=== PATIENT | male | born 1970 | race Two or more races ===

== ENCOUNTER 2021-02-18 16:50 | Inpatient (IN) | payer MEDICAID, OTHER ==
[~2021-02-18] VITALS: Ht 180.3 cm; Wt 131.0 kg
[2021-02-18] MEDS ORDERED: CHOLECALCIFEROL (VITD3) 2,000 UNIT CAP/TAB PO ONE (17:15)
[2021-02-18] MEDS ORDERED: ASCORBIC ACID 500 MG TAB PO ONE (17:15)
[2021-02-18] MEDS ORDERED: methylPREDNISolone SOD SUCC 125 MG/2 ML VL IV ONE (17:15)
[2021-02-18] MEDS ORDERED: ZINC SULFATE 220mg CAP or TAB PO ONE (17:15)
[2021-02-18] MEDS ORDERED: AZITHROMYCIN 500MG/ 250ML 250 ML IV ONE (17:15)
[2021-02-18 18:13] LABS: Basophils # (auto) 0 10 ^3/uL (0-0.2); Basophils % (auto) 0.1 % (0.0-2.0); Eosinophils # (auto) 0 10 ^3/uL (0-0.8); Hematocrit 48.9 % (41.0-53.0); Lymphocytes # (auto) 0.4 10 ^3/uL (0.4-5.4); Lymphocytes % (auto) 6.3 % (10.0-50.0); Mean Corpuscular Hemoglobin 31.3 pg (28.0-32.0); Mean Corpuscular Hgb Conc. 34.8 g/dL (32.0-36.0); Mean Corpuscular Volume 89.7 fL (80.0-100.0); Monocytes # (auto) 0.3 10 ^3/uL (0-1.3); Monocytes % (auto) 5.1 % (0.0-12.0); Neutrophils # (auto) 5.6 10 ^3/uL (1.6-8.6); Neutrophils % (auto) 88.5 % (37.0-80.0); Nucleated Red Blood Cells % 0.2 %; Red Blood Cells 5.45 10^6/uL (4.5-5.90); Red Cell Distribution Width 12.7 % (11.8-14.3); White Blood Cell 6.4 10^3/uL (4.4-10.8)
[2021-02-18 18:26] LABS: Albumin 2.9 g/dL (3.4-5.0); Calcium 8.4 mg/dL (8.5-10.1); Magnesium 2.8 mg/dL (1.6-2.6); Potassium 3.4 mmol/L (3.5-5.1)
[2021-02-18 18:28] LABS: BUN/Creatinine Ratio 20.7; Bilirubin, Total 1.3 mg/dL (0.2-1.0); Total Protein 7.5 g/dL (6.4-8.2)
[2021-02-18] MEDS ORDERED: ALBUTEROL SULF 2.5 MG/0.5ML(0.5%) NEB SOLN HHN ONE (19:15)
[2021-02-18] MEDS ORDERED: REMDESIVIR PER PHARMACY 0 ML IV SCH (19:15)
[2021-02-18] MEDS ORDERED: SODIUM CHLORIDE 0.9% 1,000 ML IV ONE (19:15)
[2021-02-18] MEDS ORDERED: IPRATROPIUM BROM 0.5 MG/2.5ML INH SOL HHN ONE (19:15)
[2021-02-18] MEDS ORDERED: IOHEXOL 350 MG/ML 100ML IJ ONE (19:59)
[2021-02-18] MEDS ORDERED: ENOXAPARIN SOD 100 MG/1 ML SYRINGE SC ONE (20:00)
[2021-02-18] MEDS ORDERED: REMDESIVIR 200 MG in NS 210ml LOADING DOSE ADULT IV ONE (21:00)
[2021-02-18] MEDS ORDERED: ONDANSETRON HCL 4 MG/2 ML VIAL IV PRN (21:15)
[2021-02-18] MEDS ORDERED: DOCUSATE SOD 100 MG CAP PO PRN (21:15)
[2021-02-18] MEDS ORDERED: ACETAMINOPHEN 500 MG TAB PO PRN (21:15)
[2021-02-18 21:24] LABS: Lactic Acid w/Reflex 3.2 mmol/L (0.4-2.0)
[2021-02-18] MEDS: FAMOTIDINE (10MG/ML) 2ML VL IV SCH (22:07)
[2021-02-18] MEDS: SODIUM CHLOR 0.9% PF (SALINE LOCK) 10ML VIAL/SYR IV SCH (22:08)
[2021-02-18 23:50] VITALS: BP 95/65
[2021-02-19] MEDS ORDERED: NITROGLYCERIN 0.4 MG SL TAB SL PRN (00:15)
[2021-02-19] MEDS ORDERED: MORPHINE SULFATE INJECTION 2 MG/ML SYRG IV PRN (00:15)
[2021-02-19] MEDS ORDERED: POTASSIUM CHL 20MEQ/100ML 100 ML IV ONE (00:45)
[2021-02-19] MEDS: SODIUM CHLORIDE 0.9% 1,000 ML IV SCH ×2 (00:56→17:25)
[2021-02-19 01:28] VITALS: BP 112/71
[2021-02-19 02:11] VITALS: BP 112/71
[2021-02-19 05:00] VITALS: BP 124/73
[2021-02-19] MEDS: SODIUM CHLOR 0.9% PF (SALINE LOCK) 10ML VIAL/SYR IV SCH ×3 (05:30→21:18)
[2021-02-19 09:00] VITALS: BP 108/72
[2021-02-19] MEDS: ZINC SULFATE 220mg CAP or TAB PO SCH (10:40)
[2021-02-19] MEDS: AZITHROMYCIN 500MG/ 250ML 250 ML IV SCH (10:40)
[2021-02-19] MEDS: FAMOTIDINE (10MG/ML) 2ML VL IV SCH ×2 (10:40→21:18)
[2021-02-19] MEDS: DexAMETHasone SOD PHOS 10MG/1ML VIAL INJ IV SCH (10:40)
[2021-02-19] MEDS: MULTIPLE VITAMIN TAB PO SCH (10:41)
[2021-02-19] MEDS: CHOLECALCIFEROL (VITD3) 2,000 UNIT CAP/TAB PO SCH (10:41)
[2021-02-19] MEDS: ASCORBIC ACID 1,000 MG TAB PO SCH (10:41)
[2021-02-19] MEDS: ENOXAPARIN SOD 40 MG/0.4 ML SYRINGE SC SCH ×2 (10:41→21:18)
[2021-02-19 11:59] LABS: Basophils # (auto) 0 10 ^3/uL (0-0.2); Basophils % (auto) 0.1 % (0.0-2.0); Eosinophils # (auto) 0 10 ^3/uL (0-0.8); Hematocrit 45.7 % (41.0-53.0); Hemoglobin 15.9 g/dL (13.5-17.5); Lymphocytes # (auto) 0.4 10 ^3/uL (0.4-5.4); Lymphocytes % (auto) 4.9 % (10.0-50.0); Mean Corpuscular Hemoglobin 31.7 pg (28.0-32.0); Mean Corpuscular Hgb Conc. 34.7 g/dL (32.0-36.0); Mean Corpuscular Volume 91.3 fL (80.0-100.0); Monocytes # (auto) 0.3 10 ^3/uL (0-1.3); Monocytes % (auto) 3.8 % (0.0-12.0); Neutrophils # (auto) 7.4 10 ^3/uL (1.6-8.6); Neutrophils % (auto) 91.2 % (37.0-80.0); Nucleated Red Blood Cells % 0.4 %; Red Cell Distribution Width 13.2 % (11.8-14.3); White Blood Cell 8.1 10^3/uL (4.4-10.8)
[2021-02-19 12:22] LABS: Albumin 2.4 g/dL (3.4-5.0); Calcium 7.6 mg/dL (8.5-10.1); Potassium 3.9 mmol/L (3.5-5.1)
[2021-02-19 12:25] LABS: BUN/Creatinine Ratio 23.3; Bilirubin, Total 0.8 mg/dL (0.2-1.0); Total Protein 6.1 g/dL (6.4-8.2)
[2021-02-19 13:00] VITALS: BP 94/63
[2021-02-19] MEDS: REMDESIVIR 100mg 100 MG in SODIUM CHL 0.9% 230 ML IV SCH (15:46)
[2021-02-19 17:00] VITALS: BP 96/63
[2021-02-19] MEDS: HYDROcodone-ACET 5/325MG TAB PO PRN (21:18)
[2021-02-20 05:00] VITALS: BP 92/64
[2021-02-20] MEDS: SODIUM CHLORIDE 0.9% 1,000 ML IV SCH (05:11)
[2021-02-20] MEDS: SODIUM CHLOR 0.9% PF (SALINE LOCK) 10ML VIAL/SYR IV SCH ×3 (05:35→22:00)
[2021-02-20 06:35] LABS: Basophils # (auto) 0 10 ^3/uL (0-0.2); Basophils % (auto) 0.1 % (0.0-2.0); Eosinophils # (auto) 0 10 ^3/uL (0-0.8); Hematocrit 44.4 % (41.0-53.0); Hemoglobin 15.3 g/dL (13.5-17.5); Lymphocytes # (auto) 0.6 10 ^3/uL (0.4-5.4); Lymphocytes % (auto) 6.4 % (10.0-50.0); Mean Corpuscular Hemoglobin 31.3 pg (28.0-32.0); Mean Corpuscular Hgb Conc. 34.5 g/dL (32.0-36.0); Mean Corpuscular Volume 90.9 fL (80.0-100.0); Monocytes # (auto) 0.4 10 ^3/uL (0-1.3); Monocytes % (auto) 4.2 % (0.0-12.0); Neutrophils # (auto) 8.3 10 ^3/uL (1.6-8.6); Neutrophils % (auto) 89.3 % (37.0-80.0); Red Blood Cells 4.89 10^6/uL (4.5-5.90); Red Cell Distribution Width 13.4 % (11.8-14.3); White Blood Cell 9.3 10^3/uL (4.4-10.8)
[2021-02-20 07:02] LABS: Calcium 7.5 mg/dL (8.5-10.1); Potassium 4.2 mmol/L (3.5-5.1)
[2021-02-20 07:05] LABS: BUN/Creatinine Ratio 27.2
[2021-02-20] MEDS: ALBUTEROL SULF HFA 90MCG INH 200DOSE IN PRN (07:45)
[2021-02-20] MEDS: BUDESONIDE (INHALATION) 180 MCG IH IN SCH ×2 (07:45→22:30)
[2021-02-20 09:00] VITALS: BP 102/61
[2021-02-20] MEDS: DexAMETHasone SOD PHOS 10MG/1ML VIAL INJ IV SCH (09:41)
[2021-02-20] MEDS: FAMOTIDINE (10MG/ML) 2ML VL IV SCH ×2 (09:42→22:00)
[2021-02-20] MEDS: CHOLECALCIFEROL (VITD3) 2,000 UNIT CAP/TAB PO SCH (09:45)
[2021-02-20] MEDS: ZINC SULFATE 220mg CAP or TAB PO SCH (09:45)
[2021-02-20] MEDS: MULTIPLE VITAMIN TAB PO SCH (09:45)
[2021-02-20] MEDS: ASCORBIC ACID 1,000 MG TAB PO SCH (09:45)
[2021-02-20] MEDS: AZITHROMYCIN 500MG/ 250ML 250 ML IV SCH (09:45)
[2021-02-20] MEDS: ENOXAPARIN SOD 40 MG/0.4 ML SYRINGE SC SCH ×2 (09:46→22:00)
[2021-02-20] MEDS: HYDROcodone-ACET 5/325MG TAB PO PRN (09:47)
[2021-02-20] MEDS ORDERED: THROAT LOZENGES(CEPASTAT) MT PRN (10:30)
[2021-02-20] MEDS ORDERED: guaiFENesin-DM 100/10mg/5ml SYR PO PRN (10:30)
[2021-02-20 13:00] VITALS: BP 97/67
[2021-02-20] MEDS: REMDESIVIR 100mg 100 MG in SODIUM CHL 0.9% 230 ML IV SCH (15:22)
[2021-02-20 17:00] VITALS: BP 98/76
[2021-02-20 22:00] VITALS: BP 106/67
[2021-02-21] MEDS: SODIUM CHLORIDE 0.9% 1,000 ML IV SCH ×2 (02:45→09:39)
[2021-02-21 05:00] VITALS: BP 93/58
[2021-02-21 08:00] LABS: Basophils # (auto) 0 10 ^3/uL (0-0.2); Basophils % (auto) 0.2 % (0.0-2.0); Eosinophils # (auto) 0 10 ^3/uL (0-0.8); Hematocrit 43.7 % (41.0-53.0); Hemoglobin 15.1 g/dL (13.5-17.5); Lymphocytes # (auto) 0.5 10 ^3/uL (0.4-5.4); Mean Corpuscular Hemoglobin 31.2 pg (28.0-32.0); Mean Corpuscular Hgb Conc. 34.6 g/dL (32.0-36.0); Mean Corpuscular Volume 90.2 fL (80.0-100.0); Monocytes # (auto) 0.6 10 ^3/uL (0-1.3); Monocytes % (auto) 6.3 % (0.0-12.0); Neutrophils # (auto) 7.7 10 ^3/uL (1.6-8.6); Neutrophils % (auto) 87.5 % (37.0-80.0); Nucleated Red Blood Cells % 0.1 %; Red Blood Cells 4.85 10^6/uL (4.5-5.90); Red Cell Distribution Width 13.4 % (11.8-14.3); White Blood Cell 8.8 10^3/uL (4.4-10.8)
[2021-02-21 08:20] LABS: Calcium 7.8 mg/dL (8.5-10.1); Potassium 4.1 mmol/L (3.5-5.1)
[2021-02-21 08:26] LABS: BUN/Creatinine Ratio 34.8
[2021-02-21 08:30] VITALS: BP 104/63
[2021-02-21] MEDS: FAMOTIDINE (10MG/ML) 2ML VL IV SCH ×2 (09:39→22:00)
[2021-02-21] MEDS: DexAMETHasone SOD PHOS 10MG/1ML VIAL INJ IV SCH (09:39)
[2021-02-21] MEDS: ASCORBIC ACID 1,000 MG TAB PO SCH (09:40)
[2021-02-21] MEDS: ZINC SULFATE 220mg CAP or TAB PO SCH (09:40)
[2021-02-21] MEDS: CHOLECALCIFEROL (VITD3) 2,000 UNIT CAP/TAB PO SCH (09:40)
[2021-02-21] MEDS: ENOXAPARIN SOD 40 MG/0.4 ML SYRINGE SC SCH ×2 (09:40→22:00)
[2021-02-21] MEDS: AZITHROMYCIN 500MG/ 250ML 250 ML IV SCH (09:40)
[2021-02-21] MEDS: MULTIPLE VITAMIN TAB PO SCH (09:40)
[2021-02-21 12:30] VITALS: BP 107/68
[2021-02-21] MEDS: REMDESIVIR 100mg 100 MG in SODIUM CHL 0.9% 230 ML IV SCH (15:38)
[2021-02-21] MEDS: BUDESONIDE (INHALATION) 180 MCG IH IN SCH ×2 (15:45→22:42)
[2021-02-21] MEDS: ALBUTEROL SULF HFA 90MCG INH 200DOSE IN PRN ×2 (15:45→23:40)
[2021-02-21 17:00] VITALS: BP 124/70
[2021-02-21 22:00] VITALS: BP 100/50
[2021-02-22 05:00] VITALS: BP 120/71
[2021-02-22 07:34] LABS: Basophils # (auto) 0.1 10 ^3/uL (0-0.2); Basophils % (auto) 0.7 % (0.0-2.0); Eosinophils # (auto) 0 10 ^3/uL (0-0.8); Hemoglobin 15.2 g/dL (13.5-17.5); Lymphocytes # (auto) 0.5 10 ^3/uL (0.4-5.4); Lymphocytes % (auto) 6.4 % (10.0-50.0); Mean Corpuscular Hemoglobin 31.4 pg (28.0-32.0); Mean Corpuscular Hgb Conc. 34.7 g/dL (32.0-36.0); Mean Corpuscular Volume 90.7 fL (80.0-100.0); Monocytes # (auto) 0.6 10 ^3/uL (0-1.3); Monocytes % (auto) 8.9 % (0.0-12.0); Neutrophils # (auto) 6.1 10 ^3/uL (1.6-8.6); Nucleated Red Blood Cells % 0.1 %; Red Blood Cells 4.85 10^6/uL (4.5-5.90); Red Cell Distribution Width 13.3 % (11.8-14.3); White Blood Cell 7.3 10^3/uL (4.4-10.8)
[2021-02-22 08:00] LABS: Albumin 2.1 g/dL (3.4-5.0); Calcium 7.6 mg/dL (8.5-10.1); Potassium 4.1 mmol/L (3.5-5.1)
[2021-02-22 08:05] LABS: BUN/Creatinine Ratio 28.6; Bilirubin, Total 0.9 mg/dL (0.2-1.0); Total Protein 5.2 g/dL (6.4-8.2)
[2021-02-22] MEDS: ALBUTEROL SULF HFA 90MCG INH 200DOSE IN PRN ×2 (08:47→21:45)
[2021-02-22] MEDS: BUDESONIDE (INHALATION) 180 MCG IH IN SCH ×2 (08:47→21:45)
[2021-02-22 09:00] VITALS: BP 125/65
[2021-02-22] MEDS: FAMOTIDINE (10MG/ML) 2ML VL IV SCH ×2 (09:38→21:58)
[2021-02-22] MEDS: ENOXAPARIN SOD 40 MG/0.4 ML SYRINGE SC SCH ×2 (09:38→21:58)
[2021-02-22] MEDS: AZITHROMYCIN 500MG/ 250ML 250 ML IV SCH (09:38)
[2021-02-22] MEDS: DexAMETHasone SOD PHOS 10MG/1ML VIAL INJ IV SCH (09:38)
[2021-02-22] MEDS: ZINC SULFATE 220mg CAP or TAB PO SCH (09:39)
[2021-02-22] MEDS: ASCORBIC ACID 1,000 MG TAB PO SCH (09:39)
[2021-02-22] MEDS: MULTIPLE VITAMIN TAB PO SCH (09:39)
[2021-02-22] MEDS: CHOLECALCIFEROL (VITD3) 2,000 UNIT CAP/TAB PO SCH (09:39)
[2021-02-22] MEDS: SODIUM CHLORIDE 0.9% 1,000 ML IV SCH (12:57)
[2021-02-22 13:00] VITALS: BP 114/65
[2021-02-22] MEDS: REMDESIVIR 100mg 100 MG in SODIUM CHL 0.9% 230 ML IV SCH (15:30)
[2021-02-22 17:00] VITALS: BP 117/73
[2021-02-22 22:00] VITALS: BP 114/64
[2021-02-23 05:00] VITALS: BP 120/63
[2021-02-23] MEDS: SODIUM CHLORIDE 0.9% 1,000 ML IV SCH (05:00)
[2021-02-23 07:22] LABS: Basophils # (auto) 0 10 ^3/uL (0-0.2); Basophils % (auto) 0.1 % (0.0-2.0); Eosinophils # (auto) 0 10 ^3/uL (0-0.8); Hematocrit 47.1 % (41.0-53.0); Hemoglobin 16.1 g/dL (13.5-17.5); Lymphocytes # (auto) 0.6 10 ^3/uL (0.4-5.4); Mean Corpuscular Hemoglobin 31.1 pg (28.0-32.0); Mean Corpuscular Hgb Conc. 34.1 g/dL (32.0-36.0); Mean Corpuscular Volume 91.4 fL (80.0-100.0); Monocytes # (auto) 0.4 10 ^3/uL (0-1.3); Monocytes % (auto) 5.6 % (0.0-12.0); Neutrophils # (auto) 6.8 10 ^3/uL (1.6-8.6); Neutrophils % (auto) 86.3 % (37.0-80.0); Nucleated Red Blood Cells % 0.1 %; Red Blood Cells 5.16 10^6/uL (4.5-5.90); White Blood Cell 7.9 10^3/uL (4.4-10.8)
[2021-02-23 07:44] LABS: BUN/Creatinine Ratio 22.1; Calcium 7.9 mg/dL (8.5-10.1); Potassium 4.3 mmol/L (3.5-5.1)
[2021-02-23 09:00] VITALS: BP 138/61
[2021-02-23] MEDS: ALBUTEROL SULF HFA 90MCG INH 200DOSE IN PRN ×2 (09:36→21:51)
[2021-02-23] MEDS: BUDESONIDE (INHALATION) 180 MCG IH IN SCH ×2 (09:36→21:51)
[2021-02-23] MEDS: FAMOTIDINE (10MG/ML) 2ML VL IV SCH ×2 (10:49→21:34)
[2021-02-23] MEDS: ENOXAPARIN SOD 40 MG/0.4 ML SYRINGE SC SCH ×2 (10:49→21:34)
[2021-02-23] MEDS: ZINC SULFATE 220mg CAP or TAB PO SCH (10:49)
[2021-02-23] MEDS: ASCORBIC ACID 1,000 MG TAB PO SCH (10:49)
[2021-02-23] MEDS: MULTIPLE VITAMIN TAB PO SCH (10:49)
[2021-02-23] MEDS: AZITHROMYCIN 500MG/ 250ML 250 ML IV SCH (10:49)
[2021-02-23] MEDS: CHOLECALCIFEROL (VITD3) 2,000 UNIT CAP/TAB PO SCH (10:49)
[2021-02-23] MEDS: DexAMETHasone SOD PHOS 10MG/1ML VIAL INJ IV SCH (12:26)
[2021-02-23 13:14] VITALS: BP 113/61
[2021-02-23 17:00] VITALS: BP 100/69
[2021-02-23 21:33] VITALS: BP 108/69
[2021-02-24 04:41] VITALS: BP 134/86
[2021-02-24 06:46] LABS: Basophils # (auto) 0 10 ^3/uL (0-0.2); Basophils % (auto) 0.1 % (0.0-2.0); Eosinophils # (auto) 0 10 ^3/uL (0-0.8); Eosinophils % (auto) 0.1 % (0.0-7.0); Hematocrit 44.7 % (41.0-53.0); Hemoglobin 15.3 g/dL (13.5-17.5); Lymphocytes # (auto) 0.4 10 ^3/uL (0.4-5.4); Lymphocytes % (auto) 4.6 % (10.0-50.0); Mean Corpuscular Hemoglobin 31.3 pg (28.0-32.0); Mean Corpuscular Hgb Conc. 34.1 g/dL (32.0-36.0); Mean Corpuscular Volume 91.6 fL (80.0-100.0); Monocytes # (auto) 0.4 10 ^3/uL (0-1.3); Monocytes % (auto) 4.4 % (0.0-12.0); Neutrophils # (auto) 7.7 10 ^3/uL (1.6-8.6); Neutrophils % (auto) 90.8 % (37.0-80.0); Red Blood Cells 4.88 10^6/uL (4.5-5.90); Red Cell Distribution Width 13.2 % (11.8-14.3); White Blood Cell 8.5 10^3/uL (4.4-10.8)
[2021-02-24 07:15] LABS: Calcium 8.1 mg/dL (8.5-10.1); Potassium 4.4 mmol/L (3.5-5.1)
[2021-02-24 08:35] VITALS: BP 101/53
[2021-02-24] MEDS: DexAMETHasone SOD PHOS 10MG/1ML VIAL INJ IV SCH (12:36)
[2021-02-24] MEDS: ZINC SULFATE 220mg CAP or TAB PO SCH (12:37)
[2021-02-24] MEDS: MULTIPLE VITAMIN TAB PO SCH (12:37)
[2021-02-24] MEDS: FAMOTIDINE (10MG/ML) 2ML VL IV SCH ×2 (12:37→22:11)
[2021-02-24] MEDS: CHOLECALCIFEROL (VITD3) 2,000 UNIT CAP/TAB PO SCH (12:38)
[2021-02-24] MEDS: ASCORBIC ACID 1,000 MG TAB PO SCH (12:38)
[2021-02-24] MEDS: ENOXAPARIN SOD 40 MG/0.4 ML SYRINGE SC SCH ×2 (12:38→22:11)
[2021-02-24 12:56] VITALS: BP 100/51
[2021-02-24 16:56] VITALS: BP 91/55
[2021-02-24] MEDS: BUDESONIDE (INHALATION) 180 MCG IH IN SCH (19:05)
[2021-02-24 22:00] VITALS: BP 112/59
[2021-02-25] MEDS: ALBUTEROL SULF HFA 90MCG INH 200DOSE IN PRN ×3 (00:15→19:19)
[2021-02-25 05:00] VITALS: BP 115/70
[2021-02-25] MEDS: BUDESONIDE (INHALATION) 180 MCG IH IN SCH ×2 (06:21→19:19)
[2021-02-25 09:10] VITALS: BP 115/67
[2021-02-25] MEDS: DexAMETHasone SOD PHOS 10MG/1ML VIAL INJ IV SCH (09:52)
[2021-02-25] MEDS: ZINC SULFATE 220mg CAP or TAB PO SCH (09:52)
[2021-02-25] MEDS: FAMOTIDINE (10MG/ML) 2ML VL IV SCH ×2 (09:52→21:39)
[2021-02-25] MEDS: ASCORBIC ACID 1,000 MG TAB PO SCH (09:52)
[2021-02-25] MEDS: MULTIPLE VITAMIN TAB PO SCH (09:52)
[2021-02-25] MEDS: ENOXAPARIN SOD 40 MG/0.4 ML SYRINGE SC SCH ×2 (09:52→21:39)
[2021-02-25] MEDS: CHOLECALCIFEROL (VITD3) 2,000 UNIT CAP/TAB PO SCH (09:52)
[2021-02-25 13:05] VITALS: BP 100/66
[2021-02-25 16:08] LABS: Calcium 8.3 mg/dL (8.5-10.1); Potassium 5.1 mmol/L (3.5-5.1)
[2021-02-25 16:09] LABS: Basophils # (auto) 0 10 ^3/uL (0-0.2); Basophils % (auto) 0.1 % (0.0-2.0); Eosinophils # (auto) 0 10 ^3/uL (0-0.8); Hematocrit 45.8 % (41.0-53.0); Hemoglobin 15.9 g/dL (13.5-17.5); Lymphocytes # (auto) 0.3 10 ^3/uL (0.4-5.4); Lymphocytes % (auto) 2.9 % (10.0-50.0); Mean Corpuscular Hemoglobin 31.6 pg (28.0-32.0); Mean Corpuscular Hgb Conc. 34.8 g/dL (32.0-36.0); Mean Corpuscular Volume 90.8 fL (80.0-100.0); Monocytes # (auto) 0.3 10 ^3/uL (0-1.3); Monocytes % (auto) 2.9 % (0.0-12.0); Neutrophils # (auto) 9.1 10 ^3/uL (1.6-8.6); Neutrophils % (auto) 94.1 % (37.0-80.0); Nucleated Red Blood Cells % 0.1 %; Red Blood Cells 5.04 10^6/uL (4.5-5.90); Red Cell Distribution Width 12.9 % (11.8-14.3); White Blood Cell 9.7 10^3/uL (4.4-10.8)
[2021-02-25 16:12] LABS: Albumin 2.1 g/dL (3.4-5.0); BUN/Creatinine Ratio 26.4
[2021-02-25 16:14] LABS: Bilirubin, Total 1.4 mg/dL (0.2-1.0); Total Protein 6.3 g/dL (6.4-8.2)
[2021-02-25 17:28] VITALS: BP 98/71
[2021-02-25] MEDS: D5W/SOD CHLO 0.9% 1,000 ML IV SCH (20:54)
[2021-02-25 22:02] VITALS: BP 100/70
[2021-02-26] VITALS (8 sets, daily range): BP systolic 90–118; BP diastolic 47–85
[2021-02-26] MEDS: BUDESONIDE (INHALATION) 180 MCG IH IN SCH ×2 (06:56→18:58)
[2021-02-26] MEDS: ALBUTEROL SULF HFA 90MCG INH 200DOSE IN PRN ×2 (06:56→18:58)
[2021-02-26] MEDS: CHOLECALCIFEROL (VITD3) 2,000 UNIT CAP/TAB PO SCH (10:00)
[2021-02-26] MEDS: ASCORBIC ACID 1,000 MG TAB PO SCH (10:00)
[2021-02-26] MEDS: ZINC SULFATE 220mg CAP or TAB PO SCH (10:00)
[2021-02-26] MEDS: MULTIPLE VITAMIN TAB PO SCH (10:00)
[2021-02-26] MEDS: DexAMETHasone SOD PHOS 10MG/1ML VIAL INJ IV SCH (10:05)
[2021-02-26] MEDS: ENOXAPARIN SOD 40 MG/0.4 ML SYRINGE SC SCH ×2 (10:05→23:15)
[2021-02-26] MEDS: FAMOTIDINE (10MG/ML) 2ML VL IV SCH ×2 (10:05→23:15)
[2021-02-26] MEDS: Ensure HIGH Protein Vanilla 8oz Bottle PO SCH ×3 (12:00→22:00)
[2021-02-26 12:33] LABS: Basophils # (auto) 0.1 10 ^3/uL (0-0.2); Basophils % (auto) 0.4 % (0.0-2.0); Eosinophils # (auto) 0 10 ^3/uL (0-0.8); Eosinophils % (auto) 0.1 % (0.0-7.0); Hemoglobin 17.5 g/dL (13.5-17.5); Lymphocytes # (auto) 0.2 10 ^3/uL (0.4-5.4); Lymphocytes % (auto) 1.5 % (10.0-50.0); Mean Corpuscular Hemoglobin 31.7 pg (28.0-32.0); Mean Corpuscular Hgb Conc. 34.4 g/dL (32.0-36.0); Mean Corpuscular Volume 92.3 fL (80.0-100.0); Monocytes # (auto) 0.4 10 ^3/uL (0-1.3); Monocytes % (auto) 3.2 % (0.0-12.0); Neutrophils # (auto) 11.3 10 ^3/uL (1.6-8.6); Neutrophils % (auto) 94.8 % (37.0-80.0); Nucleated Red Blood Cells % 0.1 %; Red Blood Cells 5.52 10^6/uL (4.5-5.90); Red Cell Distribution Width 13.3 % (11.8-14.3); White Blood Cell 11.9 10^3/uL (4.4-10.8)
[2021-02-26 12:48] LABS: BUN/Creatinine Ratio 27.7; Calcium 8.1 mg/dL (8.5-10.1); Potassium 4.6 mmol/L (3.5-5.1)
[2021-02-26] MEDS: D5W/SOD CHLO 0.9% 1,000 ML IV SCH (17:48)
[2021-02-27] VITALS (56 sets, daily range): BP systolic 75–185; BP diastolic 52–103
[2021-02-27] MEDS: Ensure HIGH Protein Vanilla 8oz Bottle PO SCH ×4 (06:00→22:00)
[2021-02-27] MEDS: ALBUTEROL SULF HFA 90MCG INH 200DOSE IN PRN (06:44)
[2021-02-27] MEDS: BUDESONIDE (INHALATION) 180 MCG IH IN SCH (06:44)
[2021-02-27] MEDS ORDERED: LORazepam 2MG/ML-1ML VIAL IV PRN (07:45)
[2021-02-27] MEDS: ENOXAPARIN SOD 40 MG/0.4 ML SYRINGE SC SCH ×2 (09:44→22:31)
[2021-02-27] MEDS: DexAMETHasone SOD PHOS 10MG/1ML VIAL INJ IV SCH (09:44)
[2021-02-27] MEDS: FAMOTIDINE (10MG/ML) 2ML VL IV SCH ×2 (09:44→22:30)
[2021-02-27] MEDS: MULTIPLE VITAMIN TAB PO SCH (10:00)
[2021-02-27] MEDS: ZINC SULFATE 220mg CAP or TAB PO SCH (10:00)
[2021-02-27] MEDS: ASCORBIC ACID 1,000 MG TAB PO SCH (10:00)
[2021-02-27] MEDS: CHOLECALCIFEROL (VITD3) 2,000 UNIT CAP/TAB PO SCH (10:00)
[2021-02-27] MEDS ORDERED: PROPOFOL 100 ML IV ONE (11:12)
[2021-02-27] MEDS ORDERED: fentaNYL Drip 2500mCg/250mlNS 250 ML IV ONE (11:12)
[2021-02-27] MEDS ORDERED: ETOMIDATE (2MG/ML) 20ML VIAL IV ONE ×2 (11:13→11:15)
[2021-02-27] MEDS ORDERED: SUCCINYLCHOLINE CHLORIDE 20 MG/ML 10ML VIAL IV ONE (11:13)
[2021-02-27] MEDS ORDERED: ROCURONIUM 10MG/ML 10ML VIAL IV ONE ×2 (11:13→11:15)
[2021-02-27] MEDS ORDERED: MIDAZOLAM DRIP 50 mg/50mL 50 ML IV ONE (11:13)
[2021-02-27] MEDS ORDERED: NOREPINEPHRINE 8 MG/250ML KIT 250 ML IV ONE (11:15)
[2021-02-27] MEDS ORDERED: MIDAZOLAM HCL 2MG/2ML 2ml VIAL (1mg/ml) ONE (11:27)
[2021-02-27] MEDS ORDERED: cefTRIAXone 1GM/50ML D5W 50 ML IV ONE (12:15)
[2021-02-27] MEDS: D5W/SOD CHLO 0.9% 1,000 ML IV SCH (12:30)
[2021-02-27] MEDS: MIDAZOLAM DRIP 50 mg/50mL 50 ML IV SCH (13:00)
[2021-02-27] MEDS: PROPOFOL 100 ML IV SCH ×2 (13:00→21:13)
[2021-02-27] MEDS: fentaNYL Drip 2500mCg/250mlNS 250 ML IV SCH (13:30)
[2021-02-27] MEDS: BUDESONIDE (INHALATION) 0.5 MG/2 ML NEB NEB SCH (18:43)
[2021-02-27] MEDS: ALBUTEROL SULF 2.5 MG/0.5ML(0.5%) NEB SOLN NEB PRN (18:44)
[2021-02-27] MEDS: NOREPINEPHRINE 8 MG/250ML KIT 250 ML IV SCH (19:07)
[2021-02-28] VITALS (86 sets, daily range): BP systolic 44–198; BP diastolic 31–97
[2021-02-28] MEDS: fentaNYL Drip 2500mCg/250mlNS 250 ML IV SCH ×2 (00:01→13:30)
[2021-02-28] MEDS: NOREPINEPHRINE 8 MG/250ML KIT 250 ML IV SCH (00:04)
[2021-02-28] MEDS: PROPOFOL 100 ML IV SCH ×4 (01:40→22:59)
[2021-02-28 04:14] LABS: Hematocrit 47.9 % (41.0-53.0); Hemoglobin 15.6 g/dL (13.5-17.5); Mean Corpuscular Hgb Conc. 32.6 g/dL (32.0-36.0); Red Blood Cells 5.05 10^6/uL (4.5-5.90); Red Cell Distribution Width 13.4 % (11.8-14.3); White Blood Cell 28.2 10^3/uL (4.4-10.8)
[2021-02-28 04:26] LABS: Basophils % (manual) 0 (0.0-2.0); Blast Cells 0; Eosinophils % (manual) 0 (0-7); Metamyelocytes % 0; Myelocytes % 0; Promyelocytes % 0; Reactive Lymphocytes 0
[2021-02-28] MEDS: MIDAZOLAM DRIP 50 mg/50mL 50 ML IV SCH ×3 (04:27→16:56)
[2021-02-28 04:34] LABS: BUN/Creatinine Ratio 28.6; Calcium 7.9 mg/dL (8.5-10.1); Potassium 5.2 mmol/L (3.5-5.1)
[2021-02-28 04:38] LABS: Bilirubin, Total 1.5 mg/dL (0.2-1.0); Total Protein 6.5 g/dL (6.4-8.2)
[2021-02-28 05:38] LABS: Band Neutrophils % (manual) 3; Lymphocytes % (manual) 2 (10.0-50.0); Monocytes % (manual) 3 (0-12)
[2021-02-28] MEDS: Ensure HIGH Protein Vanilla 8oz Bottle PO SCH ×2 (06:00→12:00)
[2021-02-28] MEDS: BUDESONIDE (INHALATION) 0.5 MG/2 ML NEB NEB SCH ×2 (06:10→22:20)
[2021-02-28] MEDS: ALBUTEROL SULF 2.5 MG/0.5ML(0.5%) NEB SOLN NEB PRN ×2 (06:10→22:20)
[2021-02-28] MEDS: D5W/SOD CHLO 0.9% 1,000 ML IV SCH ×2 (08:30→12:09)
[2021-02-28] MEDS: ROCURONIUM BROMIDE 1,000 MG in D5W 5% 150 ML IV SCH (08:40)
[2021-02-28] MEDS ORDERED: LABETALOL HCL 5 MG/ML 4ML SYRINGE IV PRN (09:15)
[2021-02-28] MEDS ORDERED: LABETALOL HCL 5 MG/ML 4ML SYRINGE IV ONE (09:15)
[2021-02-28] MEDS: cefTRIAXone 1GM/50ML D5W 50 ML IV SCH (09:24)
[2021-02-28] MEDS: ASCORBIC ACID 1,000 MG TAB PO SCH (10:00)
[2021-02-28] MEDS: MULTIPLE VITAMIN TAB PO SCH (10:00)
[2021-02-28] MEDS: ZINC SULFATE 220mg CAP or TAB PO SCH (10:00)
[2021-02-28] MEDS: DexAMETHasone SOD PHOS 10MG/1ML VIAL INJ IV SCH (10:00)
[2021-02-28] MEDS: FAMOTIDINE (10MG/ML) 2ML VL IV SCH ×2 (10:00→22:57)
[2021-02-28] MEDS: CHOLECALCIFEROL (VITD3) 2,000 UNIT CAP/TAB PO SCH (10:00)
[2021-02-28] MEDS: ENOXAPARIN SOD 40 MG/0.4 ML SYRINGE SC SCH ×2 (10:00→22:57)
[2021-02-28] MEDS ORDERED: FUROSEMIDE 20 MG/2 ML VIAL IV ONE (13:30)
[2021-02-28] MEDS ORDERED: FUROSEMIDE 100 MG/10ML VIAL IV ONE (15:45)
[2021-02-28] MEDS ORDERED: SODIUM BICARBONATE 8.4 % INJ 50ML VIAL IV ONE (15:45)
[2021-02-28] MEDS: EPINEPHrine HCL 250 ML IV SCH (16:45)
[2021-02-28] MEDS: VASOPRESSIN 50 UNITS in D5W 5% 247.5 ML IV SCH (16:45)
[2021-02-28] MEDS: SODIUM BICARBONATE 50ML VIAL 150 ML in D5W 5% 1,000 ML IV SCH (16:47)
[2021-02-28] MEDS: PHENYLEPHRINE IV 250 ML IV SCH ×2 (17:10→22:58)
[2021-03-01] VITALS (101 sets, daily range): BP systolic 55–145; BP diastolic 32–76
[2021-03-01] MEDS: MIDAZOLAM DRIP 50 mg/50mL 50 ML IV SCH ×3 (00:25→12:53)
[2021-03-01] MEDS: SODIUM BICARBONATE 50ML VIAL 150 ML in D5W 5% 1,000 ML IV SCH ×2 (04:35→14:48)
[2021-03-01] MEDS: ROCURONIUM BROMIDE 1,000 MG in D5W 5% 150 ML IV SCH (04:36)
[2021-03-01] MEDS: PHENYLEPHRINE IV 250 ML IV SCH ×2 (04:36→16:36)
[2021-03-01] MEDS: PROPOFOL 100 ML IV SCH ×2 (04:37→09:47)
[2021-03-01] MEDS: NOREPINEPHRINE 8 MG/250ML KIT 250 ML IV SCH ×3 (04:37→16:36)
[2021-03-01 04:38] LABS: Hematocrit 41.8 % (41.0-53.0); Hemoglobin 14.1 g/dL (13.5-17.5); Mean Corpuscular Hemoglobin 31.7 pg (28.0-32.0); Mean Corpuscular Hgb Conc. 33.8 g/dL (32.0-36.0); Mean Corpuscular Volume 93.6 fL (80.0-100.0); Red Blood Cells 4.46 10^6/uL (4.5-5.90); Red Cell Distribution Width 13.1 % (11.8-14.3); White Blood Cell 25.5 10^3/uL (4.4-10.8)
[2021-03-01 04:40] LABS: Basophils % (manual) 0 (0.0-2.0); Blast Cells 0; Eosinophils % (manual) 0 (0-7); Metamyelocytes % 0; Myelocytes % 0; Promyelocytes % 0; Reactive Lymphocytes 0
[2021-03-01 04:50] LABS: BUN/Creatinine Ratio 14.9; Calcium 6.5 mg/dL (8.5-10.1)
[2021-03-01 06:03] LABS: Band Neutrophils % (manual) 3; Lymphocytes % (manual) 2 (10.0-50.0); Monocytes % (manual) 3 (0-12)
[2021-03-01] MEDS: ALBUTEROL SULF 2.5 MG/0.5ML(0.5%) NEB SOLN NEB PRN ×3 (07:10→21:12)
[2021-03-01] MEDS: BUDESONIDE (INHALATION) 0.5 MG/2 ML NEB NEB SCH ×2 (07:10→21:12)
[2021-03-01] MEDS: fentaNYL Drip 2500mCg/250mlNS 250 ML IV SCH (09:52)
[2021-03-01] MEDS ORDERED: FUROSEMIDE 100 MG/10ML VIAL IV ONE (10:00)
[2021-03-01] MEDS: CHOLECALCIFEROL (VITD3) 2,000 UNIT CAP/TAB PO SCH (10:00)
[2021-03-01] MEDS: FAMOTIDINE (10MG/ML) 2ML VL IV SCH ×2 (10:21→22:48)
[2021-03-01] MEDS: MULTIPLE VITAMIN TAB PO SCH (10:21)
[2021-03-01] MEDS: ZINC SULFATE 220mg CAP or TAB PO SCH (10:21)
[2021-03-01] MEDS: ENOXAPARIN SOD 40 MG/0.4 ML SYRINGE SC SCH ×2 (10:21→22:49)
[2021-03-01] MEDS: ASCORBIC ACID 1,000 MG TAB PO SCH (10:21)
[2021-03-01] MEDS: DexAMETHasone SOD PHOS 10MG/1ML VIAL INJ IV SCH (10:21)
[2021-03-01] MEDS: cefTRIAXone 1GM/50ML D5W 50 ML IV SCH (10:39)
[2021-03-01] MEDS: VASOPRESSIN 50 UNITS in D5W 5% 247.5 ML IV SCH (16:36)
[2021-03-01] MEDS: EPINEPHrine HCL 250 ML IV SCH (16:36)
[2021-03-02] VITALS (106 sets, daily range): BP systolic 83–168; BP diastolic 44–81
[2021-03-02] MEDS: ROCURONIUM BROMIDE 1,000 MG in D5W 5% 150 ML IV SCH (01:12)
[2021-03-02] MEDS: PROPOFOL 100 ML IV SCH ×2 (01:44→08:59)
[2021-03-02] MEDS: SODIUM BICARBONATE 50ML VIAL 150 ML in D5W 5% 1,000 ML IV SCH ×2 (01:45→13:38)
[2021-03-02] MEDS: PHENYLEPHRINE IV 250 ML IV SCH ×2 (01:46→10:25)
[2021-03-02 04:48] LABS: Basophils # (auto) 0 10 ^3/uL (0-0.2); Basophils % (auto) 0.1 % (0.0-2.0); Eosinophils # (auto) 0 10 ^3/uL (0-0.8); Hematocrit 37.2 % (41.0-53.0); Hemoglobin 12.6 g/dL (13.5-17.5); Lymphocytes # (auto) 0.3 10 ^3/uL (0.4-5.4); Mean Corpuscular Hemoglobin 31.4 pg (28.0-32.0); Mean Corpuscular Hgb Conc. 33.9 g/dL (32.0-36.0); Mean Corpuscular Volume 92.4 fL (80.0-100.0); Monocytes # (auto) 0.8 10 ^3/uL (0-1.3); Monocytes % (auto) 4.4 % (0.0-12.0); Neutrophils # (auto) 16.2 10 ^3/uL (1.6-8.6); Neutrophils % (auto) 93.5 % (37.0-80.0); Nucleated Red Blood Cells % 0.1 %; Red Blood Cells 4.02 10^6/uL (4.5-5.90); Red Cell Distribution Width 13.6 % (11.8-14.3); White Blood Cell 17.3 10^3/uL (4.4-10.8)
[2021-03-02 05:02] LABS: BUN/Creatinine Ratio 12.9; Calcium 7.2 mg/dL (8.5-10.1); Potassium 4.3 mmol/L (3.5-5.1)
[2021-03-02] MEDS: MIDAZOLAM DRIP 50 mg/50mL 50 ML IV SCH ×3 (06:44→13:42)
[2021-03-02] MEDS: ALBUTEROL SULF 2.5 MG/0.5ML(0.5%) NEB SOLN NEB PRN ×2 (07:18→14:21)
[2021-03-02] MEDS: BUDESONIDE (INHALATION) 0.5 MG/2 ML NEB NEB SCH ×2 (07:19→19:29)
[2021-03-02] MEDS: cefTRIAXone 1GM/50ML D5W 50 ML IV SCH (09:06)
[2021-03-02] MEDS: FUROSEMIDE INJECTION 100 MG in SODIUM CHL 0.9% 100 ML IV SCH ×3 (09:41→18:15)
[2021-03-02] MEDS: MULTIPLE VITAMIN TAB PO SCH (09:41)
[2021-03-02] MEDS: ZINC SULFATE 220mg CAP or TAB PO SCH (09:41)
[2021-03-02] MEDS: CHOLECALCIFEROL (VITD3) 2,000 UNIT CAP/TAB PO SCH (09:42)
[2021-03-02] MEDS: FAMOTIDINE (10MG/ML) 2ML VL IV SCH ×2 (09:42→22:00)
[2021-03-02] MEDS: ENOXAPARIN SOD 40 MG/0.4 ML SYRINGE SC SCH ×2 (09:42→22:00)
[2021-03-02] MEDS: DexAMETHasone SOD PHOS 10MG/1ML VIAL INJ IV SCH (09:42)
[2021-03-02] MEDS: ASCORBIC ACID 1,000 MG TAB PO SCH (09:42)
[2021-03-02] MEDS: fentaNYL Drip 2500mCg/250mlNS 250 ML IV SCH (10:30)
[2021-03-02] MEDS: NOREPINEPHRINE 8 MG/250ML KIT 250 ML IV SCH (12:24)
[2021-03-02] MEDS ORDERED: AMIODARONE 450mg/250ml AE 250 ML IV SCH ×3 (15:00→22:45)
[2021-03-02] MEDS ORDERED: AMIODARONE HCL 150 MG in D5W 5% 100 ML IV ONE (15:00)
[2021-03-02] MEDS: EPINEPHrine HCL 250 ML IV SCH (15:47)
[2021-03-02] MEDS: VASOPRESSIN 50 UNITS in D5W 5% 247.5 ML IV SCH (15:47)
[2021-03-02] MEDS ORDERED: METOPROLOL SUCCINATE XL 50 MG TAB PO ONE (16:30)
[2021-03-03] VITALS (106 sets, daily range): BP systolic 93–142; BP diastolic 46–77
[2021-03-03] MEDS: SODIUM BICARBONATE 50ML VIAL 150 ML in D5W 5% 1,000 ML IV SCH ×2 (01:15→12:45)
[2021-03-03] MEDS: FUROSEMIDE INJECTION 100 MG in SODIUM CHL 0.9% 100 ML IV SCH ×4 (01:25→18:45)
[2021-03-03 04:40] LABS: Basophils # (auto) 0 10 ^3/uL (0-0.2); Basophils % (auto) 0.2 % (0.0-2.0); Eosinophils # (auto) 0 10 ^3/uL (0-0.8); Hematocrit 39.2 % (41.0-53.0); Lymphocytes # (auto) 0.3 10 ^3/uL (0.4-5.4); Lymphocytes % (auto) 1.8 % (10.0-50.0); Mean Corpuscular Hemoglobin 31.3 pg (28.0-32.0); Mean Corpuscular Hgb Conc. 33.3 g/dL (32.0-36.0); Mean Corpuscular Volume 94.2 fL (80.0-100.0); Monocytes # (auto) 1.2 10 ^3/uL (0-1.3); Monocytes % (auto) 6.1 % (0.0-12.0); Neutrophils # (auto) 17.6 10 ^3/uL (1.6-8.6); Neutrophils % (auto) 91.9 % (37.0-80.0); Red Blood Cells 4.16 10^6/uL (4.5-5.90); Red Cell Distribution Width 13.5 % (11.8-14.3); White Blood Cell 19.2 10^3/uL (4.4-10.8)
[2021-03-03 05:07] LABS: Calcium 6.9 mg/dL (8.5-10.1); Potassium 5.4 mmol/L (3.5-5.1)
[2021-03-03 05:11] LABS: BUN/Creatinine Ratio 12.1
[2021-03-03] MEDS ORDERED: CALCIUM GLUC 1,000mg/50ml-NS 50 ML IV ONE ×2 (07:30→15:00)
[2021-03-03] MEDS ORDERED: InsuLIN REG 1unit/0.01ml Soln (100units/ml) IV ONE ×2 (07:30→17:15)
[2021-03-03] MEDS ORDERED: DEXTROSE (50%) 50ML SYRG IV ONE ×2 (07:30→17:15)
[2021-03-03] MEDS: cefTRIAXone 1GM/50ML D5W 50 ML IV SCH (09:24)
[2021-03-03] MEDS: PHENYLEPHRINE IV 250 ML IV SCH (09:25)
[2021-03-03] MEDS: SODIUM ZIRCONIUM CYCL 10 GM PAK PO SCH ×3 (09:25→22:00)
[2021-03-03] MEDS: ROCURONIUM BROMIDE 1,000 MG in D5W 5% 150 ML IV SCH (09:25)
[2021-03-03] MEDS: DexAMETHasone SOD PHOS 10MG/1ML VIAL INJ IV SCH (09:25)
[2021-03-03] MEDS: FAMOTIDINE (10MG/ML) 2ML VL IV SCH (09:26)
[2021-03-03] MEDS: CHOLECALCIFEROL (VITD3) 2,000 UNIT CAP/TAB PO SCH (09:27)
[2021-03-03] MEDS: ZINC SULFATE 220mg CAP or TAB PO SCH (09:27)
[2021-03-03] MEDS: ENOXAPARIN SOD 40 MG/0.4 ML SYRINGE SC SCH (09:27)
[2021-03-03] MEDS: ASCORBIC ACID 1,000 MG TAB PO SCH (09:27)
[2021-03-03] MEDS: MULTIPLE VITAMIN TAB PO SCH (09:27)
[2021-03-03] MEDS: NOREPINEPHRINE 8 MG/250ML KIT 250 ML IV SCH (10:50)
[2021-03-03] MEDS: PROPOFOL 100 ML IV SCH ×2 (11:15→18:45)
[2021-03-03] MEDS ORDERED: DEXTROSE (50%) 50ML SYRG IV PRN (13:15)
[2021-03-03] MEDS ORDERED: AMIODARONE HCL 200 MG TAB PO ONE (13:15)
[2021-03-03] MEDS: fentaNYL Drip 2500mCg/250mlNS 250 ML IV SCH (13:30)
[2021-03-03 14:10] LABS: BUN/Creatinine Ratio 12.3; Calcium 6.5 mg/dL (8.5-10.1); Magnesium 3.2 mg/dL (1.6-2.6)
[2021-03-03] MEDS: BUDESONIDE (INHALATION) 0.5 MG/2 ML NEB NEB SCH ×2 (14:31→22:31)
[2021-03-03 14:39] LABS: Potassium 5.8 mmol/L (3.5-5.1)
[2021-03-03] MEDS ORDERED: PIPERACILLIN-TAZOB 2.25GM 50 ML IV ONE (15:00)
[2021-03-03] MEDS ORDERED: METOCLOPRAMIDE HCL 5MG/ml INJ 2ml VIAL IV ONE (15:00)
[2021-03-03] MEDS: EPINEPHrine HCL 250 ML IV SCH (16:45)
[2021-03-03] MEDS: VASOPRESSIN 50 UNITS in D5W 5% 247.5 ML IV SCH (16:45)
[2021-03-03] MEDS ORDERED: SODIUM BICARBONATE 8.4 % INJ 50ML VIAL IV ONE (17:15)
[2021-03-03] MEDS: ACCU-CHEK COMFORT CURVE STRIP VI SCH (18:00)
[2021-03-03] MEDS: InsuLIN REG 1unit/0.01ml Soln (100units/ml) SC SCH (18:12)
[2021-03-03] MEDS: LACTULOSE 20Gm/30ML SOLN PO SCH ×2 (18:13→22:00)
[2021-03-03] MEDS: DexAMETHasone SOD PHOS 4 MG/1ML SDV INJ IV SCH (22:00)
[2021-03-03] MEDS: PIPERACILLIN-TAZOB 2.25GM 50 ML IV SCH (22:00)
[2021-03-03] MEDS: AMIODARONE HCL 200 MG TAB PO SCH (22:00)
[2021-03-03] MEDS: METOCLOPRAMIDE HCL 5MG/ml INJ 2ml VIAL IV SCH (22:00)
[2021-03-03] MEDS: ALBUTEROL SULF 2.5 MG/0.5ML(0.5%) NEB SOLN NEB PRN (22:31)
[2021-03-04] VITALS (104 sets, daily range): BP systolic 99–178; BP diastolic 48–115
[2021-03-04] MEDS: ACCU-CHEK COMFORT CURVE STRIP VI SCH ×2 (00:20→06:20)
[2021-03-04] MEDS: InsuLIN REG 1unit/0.01ml Soln (100units/ml) SC SCH ×2 (00:20→06:20)
[2021-03-04] MEDS: LACTULOSE 20Gm/30ML SOLN PO SCH ×3 (02:00→10:00)
[2021-03-04] MEDS: FUROSEMIDE INJECTION 100 MG in SODIUM CHL 0.9% 100 ML IV SCH ×3 (02:30→14:13)
[2021-03-04] MEDS: PIPERACILLIN-TAZOB 2.25GM 50 ML IV SCH ×4 (04:36→23:58)
[2021-03-04] MEDS: SODIUM ZIRCONIUM CYCL 10 GM PAK PO SCH ×3 (06:00→22:52)
[2021-03-04] MEDS: METOCLOPRAMIDE HCL 5MG/ml INJ 2ml VIAL IV SCH ×3 (06:00→22:50)
[2021-03-04] MEDS: BUDESONIDE (INHALATION) 0.5 MG/2 ML NEB NEB SCH ×2 (06:12→22:07)
[2021-03-04] MEDS: ALBUTEROL SULF 2.5 MG/0.5ML(0.5%) NEB SOLN NEB PRN ×2 (06:12→22:07)
[2021-03-04 06:23] LABS: Basophils # (auto) 0 10 ^3/uL (0-0.2); Eosinophils # (auto) 0 10 ^3/uL (0-0.8); Hematocrit 37.5 % (41.0-53.0); Hemoglobin 12.4 g/dL (13.5-17.5); Lymphocytes # (auto) 0.2 10 ^3/uL (0.4-5.4); Lymphocytes % (auto) 1.2 % (10.0-50.0); Mean Corpuscular Hemoglobin 31.3 pg (28.0-32.0); Mean Corpuscular Hgb Conc. 33.1 g/dL (32.0-36.0); Mean Corpuscular Volume 94.8 fL (80.0-100.0); Monocytes # (auto) 0.7 10 ^3/uL (0-1.3); Monocytes % (auto) 4.2 % (0.0-12.0); Neutrophils # (auto) 14.8 10 ^3/uL (1.6-8.6); Neutrophils % (auto) 94.6 % (37.0-80.0); Nucleated Red Blood Cells % 0.2 %; Red Blood Cells 3.95 10^6/uL (4.5-5.90); Red Cell Distribution Width 13.4 % (11.8-14.3); White Blood Cell 15.7 10^3/uL (4.4-10.8)
[2021-03-04 06:38] LABS: Albumin 1.3 g/dL (3.4-5.0); Calcium 6.6 mg/dL (8.5-10.1)
[2021-03-04 06:43] LABS: BUN/Creatinine Ratio 12.4; Bilirubin, Total 0.8 mg/dL (0.2-1.0); Total Protein 5.2 g/dL (6.4-8.2)
[2021-03-04] MEDS ORDERED: SODIUM CHL 0.9% 1000 ML BAG XX ONE (07:00)
[2021-03-04] MEDS: MIDAZOLAM DRIP 50 mg/50mL 50 ML IV SCH ×2 (08:49→23:25)
[2021-03-04] MEDS: PROPOFOL 100 ML IV SCH ×2 (08:50→18:53)
[2021-03-04] MEDS: ASCORBIC ACID 1,000 MG TAB PO SCH (09:19)
[2021-03-04] MEDS: ZINC SULFATE 220mg CAP or TAB PO SCH (09:19)
[2021-03-04] MEDS: DexAMETHasone SOD PHOS 4 MG/1ML SDV INJ IV SCH ×2 (09:20→22:51)
[2021-03-04] MEDS: AMIODARONE HCL 200 MG TAB PO SCH ×2 (09:20→22:52)
[2021-03-04] MEDS: IVERMECTIN 3 MG TAB PO SCH (09:21)
[2021-03-04] MEDS: CHOLECALCIFEROL (VITD3) 2,000 UNIT CAP/TAB PO SCH (09:21)
[2021-03-04] MEDS: ENOXAPARIN SOD 40 MG/0.4 ML SYRINGE SC SCH (10:00)
[2021-03-04] MEDS ORDERED: TPN PER PHARMACY 0 ML IV SCH (13:15)
[2021-03-04] MEDS ORDERED: DEXTROSE (50%) 50ML SYRG IV PRN (13:30)
[2021-03-04] MEDS ORDERED: ALBUMIN 25% 200 ML IV ONE (14:01)
[2021-03-04 15:03] LABS: Pre Albumin 11.3 mg/dL (20.0-40.0)
[2021-03-04 15:25] LABS: Phosphorus 12.4 mg/dL (2.5-4.90)
[2021-03-04] MEDS: NOREPINEPHRINE 8 MG/250ML KIT 250 ML IV SCH (16:12)
[2021-03-04] MEDS ORDERED: ACCU-CHEK COMFORT CURVE STRIP VI SCH (18:00)
[2021-03-04] MEDS ORDERED: InsuLIN REG 1unit/0.01ml Soln (100units/ml) SC SCH (18:00)
[2021-03-04] MEDS: PHENYLEPHRINE IV 250 ML IV SCH ×2 (19:58→20:45)
[2021-03-04] MEDS ORDERED: AMINO ACID INFUSION IN D10W 1,000 ML IV NR (20:00)
[2021-03-04] MEDS: EPINEPHrine HCL 250 ML IV SCH (20:07)
[2021-03-04] MEDS: VASOPRESSIN 50 UNITS in D5W 5% 247.5 ML IV SCH (20:50)
[2021-03-04] MEDS: fentaNYL Drip 2500mCg/250mlNS 250 ML IV SCH (20:58)
[2021-03-04] MEDS: ROCURONIUM BROMIDE 1,000 MG in D5W 5% 150 ML IV SCH (21:45)
[2021-03-04] MEDS: ALBUMIN 25% 100 ML IV SCH ×2 (22:30→22:47)
[2021-03-05] VITALS (109 sets, daily range): BP systolic 99–131; BP diastolic 52–70
[2021-03-05] MEDS ORDERED: DEXTROSE (50%) 50ML SYRG IV SCH
[2021-03-05] MEDS: FUROSEMIDE INJECTION 100 MG in SODIUM CHL 0.9% 100 ML IV SCH ×5 (00:22→21:52)
[2021-03-05] MEDS: ACCU-CHEK COMFORT CURVE STRIP VI SCH ×4 (00:23→18:00)
[2021-03-05] MEDS: InsuLIN REG 1unit/0.01ml Soln (100units/ml) SC SCH ×4 (00:23→18:00)
[2021-03-05] MEDS: MIDAZOLAM DRIP 50 mg/50mL 50 ML IV SCH ×2 (00:41→04:10)
[2021-03-05] MEDS: PROPOFOL 100 ML IV SCH ×3 (01:30→10:56)
[2021-03-05] MEDS: NOREPINEPHRINE 8 MG/250ML KIT 250 ML IV SCH (04:56)
[2021-03-05] MEDS: PIPERACILLIN-TAZOB 2.25GM 50 ML IV SCH ×4 (05:02→21:50)
[2021-03-05] MEDS: PHENYLEPHRINE IV 250 ML IV SCH ×3 (05:05→21:45)
[2021-03-05 05:41] LABS: Basophils # (auto) 0 10 ^3/uL (0-0.2); Basophils % (auto) 0.1 % (0.0-2.0); Eosinophils # (auto) 0 10 ^3/uL (0-0.8); Hemoglobin 10.2 g/dL (13.5-17.5); Lymphocytes # (auto) 0.2 10 ^3/uL (0.4-5.4); Lymphocytes % (auto) 2.2 % (10.0-50.0); Mean Corpuscular Hemoglobin 32.2 pg (28.0-32.0); Mean Corpuscular Hgb Conc. 33.9 g/dL (32.0-36.0); Monocytes # (auto) 0.6 10 ^3/uL (0-1.3); Neutrophils # (auto) 7.4 10 ^3/uL (1.6-8.6); Neutrophils % (auto) 90.7 % (37.0-80.0); Nucleated Red Blood Cells % 0.2 %; Red Blood Cells 3.16 10^6/uL (4.5-5.90); Red Cell Distribution Width 13.8 % (11.8-14.3); White Blood Cell 8.2 10^3/uL (4.4-10.8)
[2021-03-05] MEDS: METOCLOPRAMIDE HCL 5MG/ml INJ 2ml VIAL IV SCH ×3 (05:44→21:23)
[2021-03-05 05:54] LABS: Potassium 5.2 mmol/L (3.5-5.1)
[2021-03-05 06:01] LABS: Albumin 2.3 g/dL (3.4-5.0); BUN/Creatinine Ratio 11.4; Bilirubin, Total 0.9 mg/dL (0.2-1.0); Calcium 6.8 mg/dL (8.5-10.1); Magnesium 3.4 mg/dL (1.6-2.6); Total Protein 5.7 g/dL (6.4-8.2)
[2021-03-05] MEDS: BUDESONIDE (INHALATION) 0.5 MG/2 ML NEB NEB SCH ×2 (06:05→23:39)
[2021-03-05] MEDS: ALBUTEROL SULF 2.5 MG/0.5ML(0.5%) NEB SOLN NEB PRN ×2 (06:05→23:39)
[2021-03-05] MEDS: SODIUM ZIRCONIUM CYCL 10 GM PAK PO SCH (06:48)
[2021-03-05] MEDS: ALBUMIN 25% 100 ML IV SCH (06:49)
[2021-03-05] MEDS ORDERED: SODIUM BICARBONATE 8.4 % INJ 50ML VIAL IV ONE (09:15)
[2021-03-05] MEDS: IVERMECTIN 3 MG TAB PO SCH (10:10)
[2021-03-05] MEDS: CHOLECALCIFEROL (VITD3) 2,000 UNIT CAP/TAB PO SCH (10:10)
[2021-03-05] MEDS: DexAMETHasone SOD PHOS 4 MG/1ML SDV INJ IV SCH ×2 (10:10→21:23)
[2021-03-05] MEDS: AMIODARONE HCL 200 MG TAB PO SCH ×2 (10:10→21:24)
[2021-03-05] MEDS: FAMOTIDINE (10MG/ML) 2ML VL IV SCH (10:11)
[2021-03-05] MEDS: ENOXAPARIN SOD 40 MG/0.4 ML SYRINGE SC SCH (10:11)
[2021-03-05] MEDS: ZINC SULFATE 220mg CAP or TAB PO SCH (10:11)
[2021-03-05] MEDS: ASCORBIC ACID 1,000 MG TAB PO SCH (10:11)
[2021-03-05] MEDS: fentaNYL Drip 2500mCg/250mlNS 250 ML IV SCH (11:01)
[2021-03-05] MEDS ORDERED: ROCURONIUM 10MG/ML 10ML VIAL IV ONE (11:15)
[2021-03-05] MEDS ORDERED: CALCIUM GLUC 1,000mg/50ml-NS 50 ML IV ONE (11:30)
[2021-03-05] MEDS: VASOPRESSIN 50 UNITS in D5W 5% 247.5 ML IV SCH (16:45)
[2021-03-05] MEDS: EPINEPHrine HCL 250 ML IV SCH (16:45)
[2021-03-05] MEDS: ROCURONIUM BROMIDE 1,000 MG in D5W 5% 150 ML IV SCH (17:12)
[2021-03-05] MEDS ORDERED: TPN PER PHARMACY IV NR ×5 (20:00)
[2021-03-06] VITALS (104 sets, daily range): BP systolic 74–148; BP diastolic 40–72
[2021-03-06] MEDS: ACCU-CHEK COMFORT CURVE STRIP VI SCH ×4 (00:14→18:01)
[2021-03-06] MEDS: InsuLIN REG 1unit/0.01ml Soln (100units/ml) SC SCH ×4 (00:14→18:12)
[2021-03-06] MEDS: FUROSEMIDE INJECTION 100 MG in SODIUM CHL 0.9% 100 ML IV SCH ×3 (03:08→12:21)
[2021-03-06 04:02] LABS: Basophils # (auto) 0 10 ^3/uL (0-0.2); Basophils % (auto) 0.1 % (0.0-2.0); Eosinophils # (auto) 0 10 ^3/uL (0-0.8); Hematocrit 31.6 % (41.0-53.0); Hemoglobin 10.3 g/dL (13.5-17.5); Lymphocytes # (auto) 0.2 10 ^3/uL (0.4-5.4); Mean Corpuscular Hemoglobin 31.9 pg (28.0-32.0); Mean Corpuscular Hgb Conc. 32.6 g/dL (32.0-36.0); Mean Corpuscular Volume 97.8 fL (80.0-100.0); Monocytes # (auto) 0.6 10 ^3/uL (0-1.3); Monocytes % (auto) 5.8 % (0.0-12.0); Neutrophils # (auto) 8.8 10 ^3/uL (1.6-8.6); Neutrophils % (auto) 92.1 % (37.0-80.0); Nucleated Red Blood Cells % 0.1 %; Red Blood Cells 3.23 10^6/uL (4.5-5.90); Red Cell Distribution Width 14.1 % (11.8-14.3); White Blood Cell 9.6 10^3/uL (4.4-10.8)
[2021-03-06 04:30] LABS: Albumin 2.4 g/dL (3.4-5.0); BUN/Creatinine Ratio 13.1; Bilirubin, Total 0.9 mg/dL (0.2-1.0); Calcium 6.7 mg/dL (8.5-10.1); Magnesium 3.4 mg/dL (1.6-2.6); Total Protein 5.3 g/dL (6.4-8.2)
[2021-03-06] MEDS: PIPERACILLIN-TAZOB 2.25GM 50 ML IV SCH (04:44)
[2021-03-06 04:58] LABS: Phosphorus 10.8 mg/dL (2.5-4.90); Potassium 5.8 mmol/L (3.5-5.1)
[2021-03-06] MEDS: METOCLOPRAMIDE HCL 5MG/ml INJ 2ml VIAL IV SCH ×3 (05:22→22:00)
[2021-03-06] MEDS: PHENYLEPHRINE IV 250 ML IV SCH ×3 (06:05→22:45)
[2021-03-06] MEDS: ALBUTEROL SULF 2.5 MG/0.5ML(0.5%) NEB SOLN NEB PRN ×2 (07:13→19:22)
[2021-03-06] MEDS: BUDESONIDE (INHALATION) 0.5 MG/2 ML NEB NEB SCH ×2 (07:13→19:22)
[2021-03-06] MEDS: ROCURONIUM BROMIDE 1,000 MG in D5W 5% 150 ML IV SCH (09:07)
[2021-03-06] MEDS ORDERED: SODIUM CHL 0.9% 1000 ML BAG XX ONE (09:45)
[2021-03-06] MEDS ORDERED: FREE WATER GT SCH (10:00)
[2021-03-06] MEDS ORDERED: levoFLOXacin 500MG 100 ML IV ONE (10:00)
[2021-03-06] MEDS: IVERMECTIN 3 MG TAB PO SCH (10:29)
[2021-03-06] MEDS: DexAMETHasone SOD PHOS 4 MG/1ML SDV INJ IV SCH ×2 (10:30→22:00)
[2021-03-06] MEDS: AMIODARONE HCL 200 MG TAB PO SCH ×2 (10:30→22:00)
[2021-03-06] MEDS: ZINC SULFATE 220mg CAP or TAB PO SCH (10:30)
[2021-03-06] MEDS: ASCORBIC ACID 1,000 MG TAB PO SCH (10:31)
[2021-03-06] MEDS: CHOLECALCIFEROL (VITD3) 2,000 UNIT CAP/TAB PO SCH (10:31)
[2021-03-06] MEDS: PROPOFOL 100 ML IV SCH (10:32)
[2021-03-06] MEDS ORDERED: CALCIUM GLUC 1,000mg/50ml-NS 50 ML IV ONE (10:45)
[2021-03-06] MEDS: MIDAZOLAM DRIP 50 mg/50mL 50 ML IV SCH (12:12)
[2021-03-06] MEDS: ENOXAPARIN SOD 40 MG/0.4 ML SYRINGE SC SCH (12:12)
[2021-03-06] MEDS: fentaNYL Drip 2500mCg/250mlNS 250 ML IV SCH (13:30)
[2021-03-06] MEDS: EPINEPHrine HCL 250 ML IV SCH (16:45)
[2021-03-06] MEDS: VASOPRESSIN 50 UNITS in D5W 5% 247.5 ML IV SCH (16:45)
[2021-03-06] MEDS: NOREPINEPHRINE 8 MG/250ML KIT 250 ML IV SCH (19:15)
[2021-03-06] MEDS ORDERED: TPN PER PHARMACY IV NR ×6 (20:00)
[2021-03-07] VITALS (102 sets, daily range): BP systolic 89–135; BP diastolic 47–64
[2021-03-07] MEDS: ROCURONIUM BROMIDE 1,000 MG in D5W 5% 150 ML IV SCH (04:48)
[2021-03-07] MEDS: METOCLOPRAMIDE HCL 5MG/ml INJ 2ml VIAL IV SCH ×3 (05:25→22:00)
[2021-03-07] MEDS: ACCU-CHEK COMFORT CURVE STRIP VI SCH ×4 (05:26→18:33)
[2021-03-07] MEDS: InsuLIN REG 1unit/0.01ml Soln (100units/ml) SC SCH ×4 (05:27→18:32)
[2021-03-07 05:51] LABS: Albumin 2.4 g/dL (3.4-5.0); Calcium 7.5 mg/dL (8.5-10.1); Magnesium 2.8 mg/dL (1.6-2.6); Potassium 4.8 mmol/L (3.5-5.1)
[2021-03-07 05:56] LABS: BUN/Creatinine Ratio 12.6; Bilirubin, Total 0.9 mg/dL (0.2-1.0); Phosphorus 7.9 mg/dL (2.5-4.90); Total Protein 5.6 g/dL (6.4-8.2)
[2021-03-07 06:06] LABS: Basophils # (auto) 0 10 ^3/uL (0-0.2); Basophils % (auto) 0.1 % (0.0-2.0); Eosinophils # (auto) 0 10 ^3/uL (0-0.8); Eosinophils % (auto) 0.1 % (0.0-7.0); Hematocrit 31.7 % (41.0-53.0); Hemoglobin 10.4 g/dL (13.5-17.5); Lymphocytes # (auto) 0.3 10 ^3/uL (0.4-5.4); Lymphocytes % (auto) 2.2 % (10.0-50.0); Mean Corpuscular Hemoglobin 31.4 pg (28.0-32.0); Mean Corpuscular Hgb Conc. 32.8 g/dL (32.0-36.0); Monocytes # (auto) 0.8 10 ^3/uL (0-1.3); Monocytes % (auto) 6.2 % (0.0-12.0); Neutrophils # (auto) 11.2 10 ^3/uL (1.6-8.6); Neutrophils % (auto) 91.4 % (37.0-80.0); Nucleated Red Blood Cells % 0.1 %; Red Cell Distribution Width 13.5 % (11.8-14.3); White Blood Cell 12.3 10^3/uL (4.4-10.8)
[2021-03-07] MEDS: ALBUTEROL SULF 2.5 MG/0.5ML(0.5%) NEB SOLN NEB PRN ×2 (06:17→22:08)
[2021-03-07] MEDS: BUDESONIDE (INHALATION) 0.5 MG/2 ML NEB NEB SCH ×2 (06:17→22:08)
[2021-03-07] MEDS: PHENYLEPHRINE IV 250 ML IV SCH ×3 (07:05→23:45)
[2021-03-07] MEDS: MIDAZOLAM DRIP 50 mg/50mL 50 ML IV SCH ×4 (08:22→17:48)
[2021-03-07] MEDS: PROPOFOL 100 ML IV SCH ×3 (08:22→15:58)
[2021-03-07] MEDS: fentaNYL Drip 2500mCg/250mlNS 250 ML IV SCH (08:24)
[2021-03-07] MEDS: FAMOTIDINE (10MG/ML) 2ML VL IV SCH (09:04)
[2021-03-07] MEDS: DexAMETHasone SOD PHOS 4 MG/1ML SDV INJ IV SCH ×2 (09:04→22:26)
[2021-03-07] MEDS: levoFLOXacin 250MG 50 ML IV SCH (09:04)
[2021-03-07] MEDS: ZINC SULFATE 220mg CAP or TAB PO SCH (09:05)
[2021-03-07] MEDS: IVERMECTIN 3 MG TAB PO SCH (09:05)
[2021-03-07] MEDS: ASCORBIC ACID 1,000 MG TAB PO SCH (09:05)
[2021-03-07] MEDS: AMIODARONE HCL 200 MG TAB PO SCH ×2 (09:05→22:26)
[2021-03-07] MEDS: ENOXAPARIN SOD 40 MG/0.4 ML SYRINGE SC SCH (09:06)
[2021-03-07] MEDS: CHOLECALCIFEROL (VITD3) 2,000 UNIT CAP/TAB PO SCH (09:06)
[2021-03-07] MEDS ORDERED: SODIUM BICARBONATE 50ML VIAL 150 ML in D5W 5% 1,000 ML IV SCH (11:15)
[2021-03-07] MEDS: DOPamine 1600MCG/ML D5W 250 ML IV SCH (13:07)
[2021-03-07 13:24] LABS: Protein, Urine 257.5 mg/dL (0.0-11.9)
[2021-03-07 13:29] LABS: Creatinine, Urine 63 mg/dL (30.0-125.0); Sodium Urine 55 mmol/L (40-220)
[2021-03-07] MEDS ORDERED: Nepro With Carb Steady 1 Liter Bottle GT SCH (15:30)
[2021-03-07] MEDS: NOREPINEPHRINE 8 MG/250ML KIT 250 ML IV SCH (15:57)
[2021-03-07] MEDS: SODIUM BICARBONATE 50ML VIAL 150 ML in D5W 5% 1,000 ML IV SCH (15:58)
[2021-03-07] MEDS: VASOPRESSIN 50 UNITS in D5W 5% 247.5 ML IV SCH (16:45)
[2021-03-07] MEDS: EPINEPHrine HCL 250 ML IV SCH (16:45)
[2021-03-07] MEDS ORDERED: TPN PER PHARMACY IV NR ×6 (20:00)
[2021-03-08] VITALS (105 sets, daily range): BP systolic 86–115; BP diastolic 45–61
[2021-03-08] MEDS: ROCURONIUM BROMIDE 1,000 MG in D5W 5% 150 ML IV SCH ×2 (01:24→21:36)
[2021-03-08 03:47] LABS: Basophils # (auto) 0.1 10 ^3/uL (0-0.2); Basophils % (auto) 0.9 % (0.0-2.0); Eosinophils # (auto) 0 10 ^3/uL (0-0.8); Eosinophils % (auto) 0.1 % (0.0-7.0); Hematocrit 29.4 % (41.0-53.0); Hemoglobin 9.8 g/dL (13.5-17.5); Lymphocytes # (auto) 0.2 10 ^3/uL (0.4-5.4); Lymphocytes % (auto) 1.9 % (10.0-50.0); Mean Corpuscular Hemoglobin 31.5 pg (28.0-32.0); Mean Corpuscular Hgb Conc. 33.4 g/dL (32.0-36.0); Mean Corpuscular Volume 94.2 fL (80.0-100.0); Monocytes # (auto) 0.4 10 ^3/uL (0-1.3); Monocytes % (auto) 4.1 % (0.0-12.0); Neutrophils # (auto) 10.1 10 ^3/uL (1.6-8.6); Nucleated Red Blood Cells % 0.1 %; Red Blood Cells 3.12 10^6/uL (4.5-5.90); Red Cell Distribution Width 13.6 % (11.8-14.3); White Blood Cell 10.9 10^3/uL (4.4-10.8)
[2021-03-08 05:57] LABS: Albumin 2.3 g/dL (3.4-5.0); BUN/Creatinine Ratio 13.9; Bilirubin, Total 0.7 mg/dL (0.2-1.0); Calcium 7.6 mg/dL (8.5-10.1); Phosphorus 8.7 mg/dL (2.5-4.90); Potassium 4.8 mmol/L (3.5-5.1); Total Protein 5.4 g/dL (6.4-8.2)
[2021-03-08] MEDS: METOCLOPRAMIDE HCL 5MG/ml INJ 2ml VIAL IV SCH ×3 (06:00→21:37)
[2021-03-08] MEDS: InsuLIN REG 1unit/0.01ml Soln (100units/ml) SC SCH ×4 (06:11→18:00)
[2021-03-08] MEDS: ACCU-CHEK COMFORT CURVE STRIP VI SCH ×4 (06:11→18:00)
[2021-03-08] MEDS: PHENYLEPHRINE IV 250 ML IV SCH ×2 (08:01→16:25)
[2021-03-08] MEDS: BUDESONIDE (INHALATION) 0.5 MG/2 ML NEB NEB SCH ×2 (08:14→20:12)
[2021-03-08] MEDS: fentaNYL Drip 2500mCg/250mlNS 250 ML IV SCH (08:49)
[2021-03-08] MEDS: PROPOFOL 100 ML IV SCH (09:01)
[2021-03-08] MEDS: MIDAZOLAM DRIP 50 mg/50mL 50 ML IV SCH (09:05)
[2021-03-08] MEDS ORDERED: ALBUMIN 25% 100 ML IV PRN (11:00)
[2021-03-08] MEDS: DOPamine 1600MCG/ML D5W 250 ML IV SCH (11:15)
[2021-03-08] MEDS: DexAMETHasone SOD PHOS 4 MG/1ML SDV INJ IV SCH ×2 (11:15→21:35)
[2021-03-08] MEDS: AMIODARONE HCL 200 MG TAB PO SCH ×2 (11:16→21:37)
[2021-03-08] MEDS: ZINC SULFATE 220mg CAP or TAB PO SCH (11:16)
[2021-03-08] MEDS: ASCORBIC ACID 1,000 MG TAB PO SCH (11:16)
[2021-03-08] MEDS: IVERMECTIN 3 MG TAB PO SCH (11:16)
[2021-03-08] MEDS: ENOXAPARIN SOD 40 MG/0.4 ML SYRINGE SC SCH (11:17)
[2021-03-08] MEDS: CHOLECALCIFEROL (VITD3) 2,000 UNIT CAP/TAB PO SCH (11:17)
[2021-03-08] MEDS: SODIUM BICARBONATE 50ML VIAL 150 ML in D5W 5% 1,000 ML IV SCH (14:30)
[2021-03-08] MEDS: VASOPRESSIN 50 UNITS in D5W 5% 247.5 ML IV SCH (16:45)
[2021-03-08] MEDS: EPINEPHrine HCL 250 ML IV SCH (16:45)
[2021-03-08] MEDS: NOREPINEPHRINE 8 MG/250ML KIT 250 ML IV SCH (19:15)
[2021-03-08] MEDS ORDERED: TPN*HIGH CONC* PER PHARMACY IV NR ×6 (20:00)
[2021-03-08] MEDS: ALBUTEROL SULF 2.5 MG/0.5ML(0.5%) NEB SOLN NEB PRN (20:12)
[2021-03-09] VITALS (104 sets, daily range): BP systolic 91–133; BP diastolic 47–82
[2021-03-09] MEDS: ACCU-CHEK COMFORT CURVE STRIP VI SCH ×4 (00:27→18:00)
[2021-03-09] MEDS: InsuLIN REG 1unit/0.01ml Soln (100units/ml) SC SCH ×4 (00:28→18:00)
[2021-03-09] MEDS: PHENYLEPHRINE IV 250 ML IV SCH ×3 (00:45→17:25)
[2021-03-09] MEDS: METOCLOPRAMIDE HCL 5MG/ml INJ 2ml VIAL IV SCH ×3 (06:08→20:39)
[2021-03-09] MEDS: BUDESONIDE (INHALATION) 0.5 MG/2 ML NEB NEB SCH ×2 (06:08→22:00)
[2021-03-09] MEDS ORDERED: SODIUM CHL 0.9% 1000 ML BAG XX ONE (07:00)
[2021-03-09 07:03] LABS: White Blood Cell 12.9 10^3/uL (4.4-10.8)
[2021-03-09 07:04] LABS: Hematocrit 29.7 % (41.0-53.0); Hemoglobin 9.5 g/dL (13.5-17.5); Mean Corpuscular Hemoglobin 30.7 pg (28.0-32.0); Mean Corpuscular Hgb Conc. 32.2 g/dL (32.0-36.0); Mean Corpuscular Volume 95.4 fL (80.0-100.0); Red Blood Cells 3.11 10^6/uL (4.5-5.90); Red Cell Distribution Width 13.8 % (11.8-14.3)
[2021-03-09 07:14] LABS: Basophils % (manual) 0 (0.0-2.0); Blast Cells 0; Eosinophils % (manual) 0 (0-7); Metamyelocytes % 0; Myelocytes % 0; Promyelocytes % 0; Reactive Lymphocytes 0
[2021-03-09 07:33] LABS: Albumin 2.1 g/dL (3.4-5.0); BUN/Creatinine Ratio 13.3; Calcium 7.4 mg/dL (8.5-10.1); Magnesium 2.6 mg/dL (1.6-2.6); Potassium 5.3 mmol/L (3.5-5.1)
[2021-03-09 07:36] LABS: Bilirubin, Total 0.8 mg/dL (0.2-1.0); Total Protein 5.3 g/dL (6.4-8.2)
[2021-03-09] MEDS: ALBUMIN 25% 100 ML IV SCH ×2 (08:00→09:00)
[2021-03-09 08:04] LABS: Phosphorus 10.2 mg/dL (2.5-4.90)
[2021-03-09] MEDS: ASCORBIC ACID 1,000 MG TAB PO SCH (10:00)
[2021-03-09] MEDS: AMIODARONE HCL 200 MG TAB PO SCH ×2 (10:00→20:40)
[2021-03-09] MEDS: levoFLOXacin 250MG 50 ML IV SCH (10:00)
[2021-03-09] MEDS: ZINC SULFATE 220mg CAP or TAB PO SCH (10:00)
[2021-03-09] MEDS: FAMOTIDINE (10MG/ML) 2ML VL IV SCH (10:00)
[2021-03-09] MEDS: DexAMETHasone SOD PHOS 4 MG/1ML SDV INJ IV SCH ×2 (10:00→20:39)
[2021-03-09] MEDS: CHOLECALCIFEROL (VITD3) 2,000 UNIT CAP/TAB PO SCH (10:00)
[2021-03-09 10:23] LABS: Band Neutrophils % (manual) 4; Lymphocytes % (manual) 2 (10.0-50.0); Monocytes % (manual) 3 (0-12)
[2021-03-09] MEDS ORDERED: SODIUM BICARBONATE 50ML VIAL 150 ML in D5W 5% 1,000 ML IV SCH ×2 (11:00→13:15)
[2021-03-09] MEDS: MIDAZOLAM DRIP 50 mg/50mL 50 ML IV SCH ×2 (11:15→22:00)
[2021-03-09] MEDS: DOPamine 1600MCG/ML D5W 250 ML IV SCH (11:15)
[2021-03-09] MEDS: CALCIUM ACETATE 667 MG CAP PO SCH ×2 (11:40→19:54)
[2021-03-09] MEDS: PROPOFOL 100 ML IV SCH ×2 (11:57→20:41)
[2021-03-09] MEDS: fentaNYL Drip 2500mCg/250mlNS 250 ML IV SCH (13:30)
[2021-03-09 15:05] LABS: INR 1.07 (0.9-1.15); Partial Thromboplastin Time 31.3 sec (23.6-33.0)
[2021-03-09] MEDS: EPINEPHrine HCL 250 ML IV SCH (16:45)
[2021-03-09] MEDS: ROCURONIUM BROMIDE 1,000 MG in D5W 5% 150 ML IV SCH (18:36)
[2021-03-09] MEDS: NOREPINEPHRINE 8 MG/250ML KIT 250 ML IV SCH (19:15)
[2021-03-09] MEDS ORDERED: TPN*HIGH CONC* PER PHARMACY IV NR ×6 (20:00)
[2021-03-09] MEDS: SODIUM CHLOR 0.9% PF (SALINE LOCK) 10ML VIAL/SYR IV SCH (20:40)
[2021-03-09] MEDS ORDERED: EPOETIN ALFA-EPBX 10,000 UNIT/1ML VIAL SC ONE (21:00)
[2021-03-10] VITALS (108 sets, daily range): BP systolic 83–122; BP diastolic 43–67
[2021-03-10] MEDS: InsuLIN REG 1unit/0.01ml Soln (100units/ml) SC SCH ×5 (00:25→23:21)
[2021-03-10] MEDS: ACCU-CHEK COMFORT CURVE STRIP VI SCH ×5 (00:25→18:17)
[2021-03-10] MEDS: NOREPINEPHRINE 8 MG/250ML KIT 250 ML IV SCH (00:26)
[2021-03-10] MEDS: PROPOFOL 100 ML IV SCH ×3 (01:27→12:04)
[2021-03-10] MEDS: MIDAZOLAM DRIP 50 mg/50mL 50 ML IV SCH ×2 (01:28→06:00)
[2021-03-10] MEDS: PHENYLEPHRINE IV 250 ML IV SCH ×4 (01:45→23:21)
[2021-03-10 04:22] LABS: Hematocrit 25.6 % (41.0-53.0); Hemoglobin 8.5 g/dL (13.5-17.5); Mean Corpuscular Hemoglobin 31.3 pg (28.0-32.0); Mean Corpuscular Hgb Conc. 33.2 g/dL (32.0-36.0); Red Blood Cells 2.73 10^6/uL (4.5-5.90); Red Cell Distribution Width 13.8 % (11.8-14.3); White Blood Cell 10.5 10^3/uL (4.4-10.8)
[2021-03-10 04:32] LABS: Basophils % (manual) 0 (0.0-2.0); Blast Cells 0; Eosinophils % (manual) 0 (0-7); Metamyelocytes % 0; Promyelocytes % 0; Reactive Lymphocytes 0
[2021-03-10 04:33] LABS: Albumin 2.7 g/dL (3.4-5.0); Calcium 7.6 mg/dL (8.5-10.1); Magnesium 2.7 mg/dL (1.6-2.6); Potassium 4.2 mmol/L (3.5-5.1)
[2021-03-10 04:38] LABS: Bilirubin, Total 0.8 mg/dL (0.2-1.0); Phosphorus 7.3 mg/dL (2.5-4.90); Total Protein 5.4 g/dL (6.4-8.2)
[2021-03-10] MEDS: METOCLOPRAMIDE HCL 5MG/ml INJ 2ml VIAL IV SCH (06:06)
[2021-03-10] MEDS: fentaNYL Drip 2500mCg/250mlNS 250 ML IV SCH (06:08)
[2021-03-10 06:53] LABS: Band Neutrophils % (manual) 9; Lymphocytes % (manual) 3 (10.0-50.0); Monocytes % (manual) 5 (0-12); Myelocytes % 2
[2021-03-10] MEDS: DexAMETHasone SOD PHOS 4 MG/1ML SDV INJ IV SCH ×2 (09:18→21:17)
[2021-03-10] MEDS: ZINC SULFATE 220mg CAP or TAB PO SCH (09:19)
[2021-03-10] MEDS: CHOLECALCIFEROL (VITD3) 2,000 UNIT CAP/TAB PO SCH (09:19)
[2021-03-10] MEDS: ASCORBIC ACID 1,000 MG TAB PO SCH (09:19)
[2021-03-10] MEDS: CALCIUM ACETATE 667 MG CAP PO SCH ×3 (09:19→18:00)
[2021-03-10] MEDS: SODIUM CHLOR 0.9% PF (SALINE LOCK) 10ML VIAL/SYR IV SCH ×2 (10:00→21:18)
[2021-03-10] MEDS: AMIODARONE HCL 200 MG TAB PO SCH ×2 (10:00→21:18)
[2021-03-10] MEDS: DOPamine 1600MCG/ML D5W 250 ML IV SCH (11:15)
[2021-03-10] MEDS: ALBUTEROL SULF 2.5 MG/0.5ML(0.5%) NEB SOLN NEB PRN ×2 (11:23→19:01)
[2021-03-10] MEDS: BUDESONIDE (INHALATION) 0.5 MG/2 ML NEB NEB SCH ×2 (11:23→19:01)
[2021-03-10] MEDS: ROCURONIUM BROMIDE 1,000 MG in D5W 5% 150 ML IV SCH (15:12)
[2021-03-10] MEDS: EPINEPHrine HCL 250 ML IV SCH (16:45)
[2021-03-10] MEDS: TPN*HIGH CONC* PER PHARMACY IV NR ×6 (20:15)
[2021-03-11] VITALS (93 sets, daily range): BP systolic 99–159; BP diastolic 53–71
[2021-03-11 04:45] LABS: Hematocrit 25.6 % (41.0-53.0); Hemoglobin 8.6 g/dL (13.5-17.5); Mean Corpuscular Hemoglobin 31.4 pg (28.0-32.0); Mean Corpuscular Hgb Conc. 33.5 g/dL (32.0-36.0); Mean Corpuscular Volume 93.9 fL (80.0-100.0); Red Blood Cells 2.73 10^6/uL (4.5-5.90); Red Cell Distribution Width 14.1 % (11.8-14.3); White Blood Cell 11.9 10^3/uL (4.4-10.8)
[2021-03-11 04:59] LABS: Albumin 2.6 g/dL (3.4-5.0); Magnesium 2.8 mg/dL (1.6-2.6); Potassium 4.3 mmol/L (3.5-5.1)
[2021-03-11 05:06] LABS: BUN/Creatinine Ratio 16.4; Bilirubin, Total 0.7 mg/dL (0.2-1.0); Phosphorus 8.4 mg/dL (2.5-4.90); Pre Albumin 25.7 mg/dL (20.0-40.0); Total Protein 5.5 g/dL (6.4-8.2)
[2021-03-11 05:34] LABS: Basophils % (manual) 0 (0.0-2.0); Blast Cells 0; Eosinophils % (manual) 0 (0-7); Metamyelocytes % 0; Promyelocytes % 0; Reactive Lymphocytes 0
[2021-03-11] MEDS: InsuLIN REG 1unit/0.01ml Soln (100units/ml) SC SCH ×3 (05:36→16:30)
[2021-03-11] MEDS: ACCU-CHEK COMFORT CURVE STRIP VI SCH ×3 (05:38→16:38)
[2021-03-11] MEDS ORDERED: SODIUM CHL 0.9% 1000 ML BAG XX ONE (07:00)
[2021-03-11 07:07] LABS: Band Neutrophils % (manual) 11; Myelocytes % 2
[2021-03-11 07:09] LABS: Lymphocytes % (manual) 3 (10.0-50.0); Monocytes % (manual) 5 (0-12)
[2021-03-11] MEDS: fentaNYL Drip 2500mCg/250mlNS 250 ML IV SCH ×2 (09:46→23:40)
[2021-03-11] MEDS: MIDAZOLAM DRIP 50 mg/50mL 50 ML IV SCH ×3 (09:54→23:39)
[2021-03-11] MEDS: CALCIUM ACETATE 667 MG CAP PO SCH ×3 (10:14→16:44)
[2021-03-11] MEDS: levoFLOXacin 250MG 50 ML IV SCH (10:14)
[2021-03-11] MEDS: DexAMETHasone SOD PHOS 4 MG/1ML SDV INJ IV SCH ×2 (10:14→20:56)
[2021-03-11] MEDS: FAMOTIDINE (10MG/ML) 2ML VL IV SCH (10:14)
[2021-03-11] MEDS: AMIODARONE HCL 200 MG TAB PO SCH ×2 (10:15→20:57)
[2021-03-11] MEDS: SODIUM CHLOR 0.9% PF (SALINE LOCK) 10ML VIAL/SYR IV SCH ×2 (10:15→20:57)
[2021-03-11] MEDS: ZINC SULFATE 220mg CAP or TAB PO SCH (10:15)
[2021-03-11] MEDS: ASCORBIC ACID 1,000 MG TAB PO SCH (10:16)
[2021-03-11] MEDS: CHOLECALCIFEROL (VITD3) 2,000 UNIT CAP/TAB PO SCH (10:16)
[2021-03-11] MEDS: PHENYLEPHRINE IV 250 ML IV SCH ×2 (11:05→19:25)
[2021-03-11] MEDS: ROCURONIUM BROMIDE 1,000 MG in D5W 5% 150 ML IV SCH (11:48)
[2021-03-11] MEDS ORDERED: ENOXAPARIN SOD 30 MG/0.3 ML SYRINGE SC ONE (15:30)
[2021-03-11] MEDS: LACTULOSE 20Gm/30ML SOLN PO SCH (16:44)
[2021-03-11] MEDS: EPINEPHrine HCL 250 ML IV SCH (16:45)
[2021-03-11] MEDS: NOREPINEPHRINE 8 MG/250ML KIT 250 ML IV SCH (19:15)
[2021-03-11] MEDS: TPN*HIGH CONC* PER PHARMACY IV NR ×6 (19:47)
[2021-03-11] MEDS: PROPOFOL 100 ML IV SCH (19:52)
[2021-03-11] MEDS ORDERED: TPN*HIGH CONC* PER PHARMACY IV NR ×6 (20:00)
[2021-03-11] MEDS ORDERED: EPOETIN ALFA-EPBX 10,000 UNIT/1ML VIAL SC ONE (21:00)
[2021-03-11] MEDS: BUDESONIDE (INHALATION) 0.5 MG/2 ML NEB NEB SCH (22:08)
[2021-03-12] VITALS (64 sets, daily range): BP systolic 100–126; BP diastolic 51–70
[2021-03-12] MEDS: InsuLIN REG 1unit/0.01ml Soln (100units/ml) SC SCH ×4 (00:34→17:59)
[2021-03-12] MEDS: PROPOFOL 100 ML IV SCH ×3 (03:04→20:00)
[2021-03-12] MEDS: PHENYLEPHRINE IV 250 ML IV SCH ×3 (03:45→20:25)
[2021-03-12 05:03] LABS: Hematocrit 24.4 % (41.0-53.0); Hemoglobin 8.1 g/dL (13.5-17.5); Red Blood Cells 2.58 10^6/uL (4.5-5.90)
[2021-03-12 05:05] LABS: Mean Corpuscular Hemoglobin 31.6 pg (28.0-32.0); Mean Corpuscular Hgb Conc. 33.4 g/dL (32.0-36.0); Mean Corpuscular Volume 94.5 fL (80.0-100.0); White Blood Cell 9.3 10^3/uL (4.4-10.8)
[2021-03-12 05:09] LABS: Hematocrit 24.3 % (41.0-53.0); Hemoglobin 8.1 g/dL (13.5-17.5)
[2021-03-12 05:18] LABS: Albumin 2.3 g/dL (3.4-5.0); Potassium 4.1 mmol/L (3.5-5.1)
[2021-03-12 05:24] LABS: % Iron Saturation 84.3 % (20-55); BUN/Creatinine Ratio 17.2; Bilirubin, Total 0.8 mg/dL (0.2-1.0); Calcium 8.4 mg/dL (8.5-10.1); Phosphorus 7.7 mg/dL (2.5-4.90); Total Protein 5.6 g/dL (6.4-8.2)
[2021-03-12 05:43] LABS: Basophils % (manual) 0 (0.0-2.0); Blast Cells 0; Eosinophils % (manual) 0 (0-7); Myelocytes % 0; Promyelocytes % 0; Reactive Lymphocytes 0
[2021-03-12] MEDS: LACTULOSE 20Gm/30ML SOLN PO SCH ×4 (06:00→18:00)
[2021-03-12] MEDS: ACCU-CHEK COMFORT CURVE STRIP VI SCH ×4 (06:00→18:20)
[2021-03-12] MEDS: ALBUTEROL SULF 2.5 MG/0.5ML(0.5%) NEB SOLN NEB PRN ×3 (06:50→22:16)
[2021-03-12] MEDS ORDERED: SODIUM CHL 0.9% 1000 ML BAG XX ONE (07:00)
[2021-03-12] MEDS: ROCURONIUM BROMIDE 1,000 MG in D5W 5% 150 ML IV SCH (08:24)
[2021-03-12 09:05] LABS: Band Neutrophils % (manual) 7; Lymphocytes % (manual) 2 (10.0-50.0); Metamyelocytes % 2; Monocytes % (manual) 3 (0-12)
[2021-03-12] MEDS: ENOXAPARIN SOD 30 MG/0.3 ML SYRINGE SC SCH (10:00)
[2021-03-12] MEDS: AMIODARONE HCL 200 MG TAB PO SCH ×2 (10:00→22:39)
[2021-03-12] MEDS: SODIUM CHLOR 0.9% PF (SALINE LOCK) 10ML VIAL/SYR IV SCH ×2 (10:00→22:38)
[2021-03-12] MEDS: NOREPINEPHRINE BITARTRATE 16 MG in SODIUM CHL 0.9% 234 ML IV SCH (10:08)
[2021-03-12] MEDS: DexAMETHasone SOD PHOS 4 MG/1ML SDV INJ IV SCH ×2 (10:12→22:38)
[2021-03-12] MEDS: ASCORBIC ACID 1,000 MG TAB PO SCH (10:12)
[2021-03-12] MEDS: ZINC SULFATE 220mg CAP or TAB PO SCH (10:12)
[2021-03-12] MEDS: CHOLECALCIFEROL (VITD3) 2,000 UNIT CAP/TAB PO SCH (10:12)
[2021-03-12] MEDS: CALCIUM ACETATE 667 MG CAP PO SCH ×3 (10:13→18:00)
[2021-03-12] MEDS: MIDAZOLAM DRIP 50 mg/50mL 50 ML IV SCH ×2 (14:04→18:43)
[2021-03-12] MEDS: fentaNYL Drip 2500mCg/250mlNS 250 ML IV SCH (14:07)
[2021-03-12] MEDS: BUDESONIDE (INHALATION) 0.5 MG/2 ML NEB NEB SCH ×2 (14:16→22:16)
[2021-03-12] MEDS: EPINEPHrine HCL 250 ML IV SCH (16:45)
[2021-03-12] MEDS ORDERED: TPN*HIGH CONC* PER PHARMACY IV NR ×5 (20:00)
[2021-03-12] MEDS ORDERED: EPOETIN ALFA-EPBX 10,000 UNIT/1ML VIAL SC ONE (21:00)
[2021-03-13] VITALS (94 sets, daily range): BP systolic 93–127; BP diastolic 45–61
[2021-03-13] MEDS: ACCU-CHEK COMFORT CURVE STRIP VI SCH ×5 (00:22→23:43)
[2021-03-13] MEDS: LACTULOSE 20Gm/30ML SOLN PO SCH ×5 (00:22→23:43)
[2021-03-13] MEDS: InsuLIN REG 1unit/0.01ml Soln (100units/ml) SC SCH ×5 (00:32→23:44)
[2021-03-13] MEDS: fentaNYL Drip 2500mCg/250mlNS 250 ML IV SCH ×2 (03:00→14:45)
[2021-03-13] MEDS: PROPOFOL 100 ML IV SCH ×2 (03:00→12:59)
[2021-03-13] MEDS: MIDAZOLAM DRIP 50 mg/50mL 50 ML IV SCH ×2 (03:00→12:59)
[2021-03-13 04:23] LABS: White Blood Cell 10.8 10^3/uL (4.4-10.8)
[2021-03-13 04:27] LABS: Hematocrit 24.1 % (41.0-53.0); Hemoglobin 8.3 g/dL (13.5-17.5); Mean Corpuscular Hemoglobin 32.5 pg (28.0-32.0); Mean Corpuscular Hgb Conc. 34.4 g/dL (32.0-36.0); Mean Corpuscular Volume 94.5 fL (80.0-100.0); Red Blood Cells 2.55 10^6/uL (4.5-5.90); Red Cell Distribution Width 14.1 % (11.8-14.3)
[2021-03-13 04:44] LABS: Basophils % (manual) 0 (0.0-2.0); Blast Cells 0; Eosinophils % (manual) 0 (0-7); Metamyelocytes % 0; Promyelocytes % 0; Reactive Lymphocytes 0
[2021-03-13] MEDS: PHENYLEPHRINE IV 250 ML IV SCH ×3 (04:45→21:25)
[2021-03-13 04:47] LABS: Potassium 3.7 mmol/L (3.5-5.1)
[2021-03-13 04:52] LABS: Albumin 2.3 g/dL (3.4-5.0); BUN/Creatinine Ratio 17.1; Calcium 7.6 mg/dL (8.5-10.1); Magnesium 2.1 mg/dL (1.6-2.6)
[2021-03-13 04:54] LABS: Bilirubin, Total 0.7 mg/dL (0.2-1.0); Phosphorus 4.9 mg/dL (2.5-4.90); Total Protein 5.1 g/dL (6.4-8.2)
[2021-03-13] MEDS: ROCURONIUM BROMIDE 1,000 MG in D5W 5% 150 ML IV SCH (05:00)
[2021-03-13 06:59] LABS: Band Neutrophils % (manual) 3; Lymphocytes % (manual) 2 (10.0-50.0); Monocytes % (manual) 1 (0-12); Myelocytes % 1
[2021-03-13] MEDS: BUDESONIDE (INHALATION) 0.5 MG/2 ML NEB NEB SCH ×2 (09:12→18:47)
[2021-03-13] MEDS: ALBUTEROL SULF 2.5 MG/0.5ML(0.5%) NEB SOLN NEB PRN ×3 (09:13→18:47)
[2021-03-13] MEDS: CHOLECALCIFEROL (VITD3) 2,000 UNIT CAP/TAB PO SCH (09:24)
[2021-03-13] MEDS: ZINC SULFATE 220mg CAP or TAB PO SCH (09:24)
[2021-03-13] MEDS: ASCORBIC ACID 1,000 MG TAB PO SCH (09:24)
[2021-03-13] MEDS: SODIUM CHLOR 0.9% PF (SALINE LOCK) 10ML VIAL/SYR IV SCH ×2 (09:25→22:24)
[2021-03-13] MEDS: FAMOTIDINE (10MG/ML) 2ML VL IV SCH (09:25)
[2021-03-13] MEDS: DexAMETHasone SOD PHOS 4 MG/1ML SDV INJ IV SCH ×2 (09:25→22:23)
[2021-03-13] MEDS: AMIODARONE HCL 200 MG TAB PO SCH ×2 (09:25→22:24)
[2021-03-13] MEDS: levoFLOXacin 250MG 50 ML IV SCH (09:26)
[2021-03-13] MEDS: CALCIUM ACETATE 667 MG CAP PO SCH ×3 (09:26→18:00)
[2021-03-13] MEDS: NOREPINEPHRINE BITARTRATE 16 MG in SODIUM CHL 0.9% 234 ML IV SCH (09:45)
[2021-03-13] MEDS: ENOXAPARIN SOD 30 MG/0.3 ML SYRINGE SC SCH (10:00)
[2021-03-13] MEDS: EPINEPHrine HCL 250 ML IV SCH (16:45)
[2021-03-13] MEDS: TPN*HIGH CONC* PER PHARMACY IV NR ×7 (19:51)
[2021-03-14] VITALS (99 sets, daily range): BP systolic 93–109; BP diastolic 44–82
[2021-03-14] MEDS ORDERED: ROCURONIUM 10MG/ML 10ML VIAL IV ONE (02:00)
[2021-03-14 04:55] LABS: Potassium 3.9 mmol/L (3.5-5.1)
[2021-03-14 04:57] LABS: Albumin 2.3 g/dL (3.4-5.0); BUN/Creatinine Ratio 19.5; Calcium 7.9 mg/dL (8.5-10.1); Magnesium 2.1 mg/dL (1.6-2.6)
[2021-03-14 05:11] LABS: Bilirubin, Total 0.7 mg/dL (0.2-1.0); Phosphorus 5.9 mg/dL (2.5-4.90)
[2021-03-14] MEDS: PHENYLEPHRINE IV 250 ML IV SCH ×3 (05:45→21:31)
[2021-03-14] MEDS: ACCU-CHEK COMFORT CURVE STRIP VI SCH ×3 (05:53→17:13)
[2021-03-14] MEDS: LACTULOSE 20Gm/30ML SOLN PO SCH ×2 (05:53→21:30)
[2021-03-14] MEDS: InsuLIN REG 1unit/0.01ml Soln (100units/ml) SC SCH ×3 (05:55→17:06)
[2021-03-14] MEDS: ROCURONIUM 10MG/ML 10ML VIAL IV PRN ×2 (07:22→21:32)
[2021-03-14] MEDS: CALCIUM ACETATE 667 MG CAP PO SCH (08:00)
[2021-03-14] MEDS: PROPOFOL 100 ML IV SCH ×4 (08:08→18:52)
[2021-03-14] MEDS: MIDAZOLAM DRIP 50 mg/50mL 50 ML IV SCH ×2 (08:49→18:51)
[2021-03-14] MEDS: NOREPINEPHRINE BITARTRATE 16 MG in SODIUM CHL 0.9% 234 ML IV SCH (09:45)
[2021-03-14] MEDS: ZINC SULFATE 220mg CAP or TAB PO SCH (09:46)
[2021-03-14] MEDS: ASCORBIC ACID 1,000 MG TAB PO SCH (09:46)
[2021-03-14] MEDS: CHOLECALCIFEROL (VITD3) 2,000 UNIT CAP/TAB PO SCH (09:46)
[2021-03-14] MEDS: DexAMETHasone SOD PHOS 4 MG/1ML SDV INJ IV SCH ×2 (09:47→21:29)
[2021-03-14] MEDS: SODIUM CHLOR 0.9% PF (SALINE LOCK) 10ML VIAL/SYR IV SCH ×2 (09:47→21:30)
[2021-03-14] MEDS: AMIODARONE HCL 200 MG TAB PO SCH ×2 (09:47→21:31)
[2021-03-14] MEDS: levoFLOXacin 250MG 50 ML IV SCH (09:47)
[2021-03-14] MEDS: BUDESONIDE (INHALATION) 0.5 MG/2 ML NEB NEB SCH ×2 (10:34→21:44)
[2021-03-14] MEDS: TPN*HIGH CONC* PER PHARMACY IV NR ×15 (19:18→19:21)
[2021-03-14] MEDS: ALBUTEROL SULF 2.5 MG/0.5ML(0.5%) NEB SOLN NEB PRN (21:44)
[2021-03-15] VITALS (98 sets, daily range): BP systolic 93–130; BP diastolic 46–66
[2021-03-15] MEDS: InsuLIN REG 1unit/0.01ml Soln (100units/ml) SC SCH ×4 (00:34→18:20)
[2021-03-15 04:10] LABS: Hematocrit 25.5 % (41.0-53.0)
[2021-03-15 04:13] LABS: Hemoglobin 8.1 g/dL (13.5-17.5); Mean Corpuscular Hemoglobin 30.9 pg (28.0-32.0); Mean Corpuscular Hgb Conc. 31.9 g/dL (32.0-36.0); Mean Corpuscular Volume 96.6 fL (80.0-100.0); Red Blood Cells 2.64 10^6/uL (4.5-5.90); Red Cell Distribution Width 14.9 % (11.8-14.3); White Blood Cell 14.4 10^3/uL (4.4-10.8)
[2021-03-15 04:26] LABS: Basophils % (manual) 0 (0.0-2.0); Blast Cells 0; Eosinophils % (manual) 0 (0-7); Metamyelocytes % 0; Potassium 4.6 mmol/L (3.5-5.1); Promyelocytes % 0; Reactive Lymphocytes 0
[2021-03-15 04:33] LABS: Albumin 2.4 g/dL (3.4-5.0); Bilirubin, Total 0.7 mg/dL (0.2-1.0); Calcium 8.4 mg/dL (8.5-10.1); Magnesium 2.1 mg/dL (1.6-2.6); Phosphorus 7.1 mg/dL (2.5-4.90); Total Protein 5.5 g/dL (6.4-8.2)
[2021-03-15 05:09] LABS: BUN/Creatinine Ratio 21.7
[2021-03-15] MEDS: ACCU-CHEK COMFORT CURVE STRIP VI SCH ×4 (05:29→17:56)
[2021-03-15] MEDS: PHENYLEPHRINE IV 250 ML IV SCH ×3 (05:30→22:18)
[2021-03-15 05:39] LABS: Band Neutrophils % (manual) 7; Lymphocytes % (manual) 1 (10.0-50.0); Monocytes % (manual) 3 (0-12); Myelocytes % 5
[2021-03-15] MEDS: PROPOFOL 100 ML IV SCH ×3 (07:00→13:43)
[2021-03-15] MEDS ORDERED: SODIUM CHL 0.9% 1000 ML BAG XX ONE (07:00)
[2021-03-15] MEDS ORDERED: ALBUMIN 25% 100 ML IV PRN (08:30)
[2021-03-15] MEDS: ZINC SULFATE 220mg CAP or TAB PO SCH (10:00)
[2021-03-15] MEDS: AMIODARONE HCL 200 MG TAB PO SCH ×2 (10:00→22:18)
[2021-03-15] MEDS: DexAMETHasone SOD PHOS 4 MG/1ML SDV INJ IV SCH ×2 (10:12→22:17)
[2021-03-15] MEDS: levoFLOXacin 250MG 50 ML IV SCH (10:12)
[2021-03-15] MEDS: CHOLECALCIFEROL (VITD3) 2,000 UNIT CAP/TAB PO SCH (10:12)
[2021-03-15] MEDS: LACTULOSE 20Gm/30ML SOLN PO SCH ×2 (10:12→22:17)
[2021-03-15] MEDS: FAMOTIDINE (10MG/ML) 2ML VL IV SCH (10:12)
[2021-03-15] MEDS: NOREPINEPHRINE BITARTRATE 16 MG in SODIUM CHL 0.9% 234 ML IV SCH (10:13)
[2021-03-15] MEDS: SODIUM CHLOR 0.9% PF (SALINE LOCK) 10ML VIAL/SYR IV SCH ×2 (10:13→22:17)
[2021-03-15] MEDS: ASCORBIC ACID 1,000 MG TAB PO SCH (10:13)
[2021-03-15] MEDS: BUDESONIDE (INHALATION) 0.5 MG/2 ML NEB NEB SCH ×2 (10:32→22:27)
[2021-03-15] MEDS ORDERED: FLUCONAZOLE 200MG/100ML 100 ML IV ONE (14:15)
[2021-03-15] MEDS ORDERED: MEROPENEM 500MG IVPB 50 ML IV ONE (14:15)
[2021-03-15] MEDS: fentaNYL Drip 2500mCg/250mlNS 250 ML IV SCH (15:00)
[2021-03-15] MEDS ORDERED: SODIUM BICARBONATE 8.4 % INJ 50ML VIAL IV ONE (17:00)
[2021-03-15] MEDS ORDERED: SODIUM BICARBONATE 50ML VIAL 150 ML in D5W 5% 1,000 ML IV SCH (17:00)
[2021-03-15] MEDS: TPN*HIGH CONC* PER PHARMACY IV NR ×8 (19:30)
[2021-03-15] MEDS ORDERED: TPN*HIGH CONC* PER PHARMACY IV NR ×8 (20:00)
[2021-03-15] MEDS ORDERED: EPOETIN ALFA-EPBX 10,000 UNIT/1ML VIAL SC ONE (21:00)
[2021-03-15] MEDS: MEROPENEM 500MG IVPB 50 ML IV SCH (22:17)
[2021-03-15] MEDS: ALBUTEROL SULF 2.5 MG/0.5ML(0.5%) NEB SOLN NEB PRN (22:27)
[2021-03-16] VITALS (101 sets, daily range): BP systolic 94–115; BP diastolic 42–58
[2021-03-16] MEDS: ACCU-CHEK COMFORT CURVE STRIP VI SCH ×5 (00:24→23:37)
[2021-03-16] MEDS: InsuLIN REG 1unit/0.01ml Soln (100units/ml) SC SCH ×5 (00:24→23:39)
[2021-03-16 04:07] LABS: Hemoglobin 8.1 g/dL (13.5-17.5); Mean Corpuscular Hgb Conc. 32.6 g/dL (32.0-36.0); Red Cell Distribution Width 14.5 % (11.8-14.3)
[2021-03-16 04:10] LABS: Hematocrit 24.7 % (41.0-53.0); Red Blood Cells 2.61 10^6/uL (4.5-5.90); White Blood Cell 16.8 10^3/uL (4.4-10.8)
[2021-03-16 04:23] LABS: Basophils % (manual) 0 (0.0-2.0); Blast Cells 0; Eosinophils % (manual) 0 (0-7); Promyelocytes % 0; Reactive Lymphocytes 0
[2021-03-16 04:28] LABS: Albumin 2.6 g/dL (3.4-5.0); Calcium 8.1 mg/dL (8.5-10.1); Magnesium 2.8 mg/dL (1.6-2.6)
[2021-03-16 04:32] LABS: BUN/Creatinine Ratio 20.5; Bilirubin, Total 0.8 mg/dL (0.2-1.0); Phosphorus 5.6 mg/dL (2.5-4.90); Total Protein 5.5 g/dL (6.4-8.2)
[2021-03-16] MEDS: PHENYLEPHRINE IV 250 ML IV SCH ×2 (07:45→16:05)
[2021-03-16 07:50] LABS: Band Neutrophils % (manual) 7; Lymphocytes % (manual) 4 (10.0-50.0); Metamyelocytes % 2; Monocytes % (manual) 4 (0-12); Myelocytes % 3
[2021-03-16] MEDS: PROPOFOL 100 ML IV SCH ×4 (08:10→20:00)
[2021-03-16] MEDS: DexAMETHasone SOD PHOS 4 MG/1ML SDV INJ IV SCH ×2 (09:27→22:21)
[2021-03-16] MEDS: SODIUM CHLOR 0.9% PF (SALINE LOCK) 10ML VIAL/SYR IV SCH ×2 (09:28→22:22)
[2021-03-16] MEDS: MEROPENEM 500MG IVPB 50 ML IV SCH ×2 (09:28→22:22)
[2021-03-16] MEDS: FLUCONAZOLE 200MG/100ML 100 ML IV SCH (09:29)
[2021-03-16] MEDS: LACTULOSE 20Gm/30ML SOLN PO SCH ×2 (09:29→22:22)
[2021-03-16] MEDS: AMIODARONE HCL 200 MG TAB PO SCH ×2 (09:30→22:22)
[2021-03-16] MEDS: ZINC SULFATE 220mg CAP or TAB PO SCH (09:30)
[2021-03-16] MEDS: CHOLECALCIFEROL (VITD3) 2,000 UNIT CAP/TAB PO SCH (09:31)
[2021-03-16] MEDS ORDERED: SODIUM BICARBONATE 8.4 % INJ 50ML VIAL IV ONE (09:52)
[2021-03-16] MEDS: MIDAZOLAM DRIP 50 mg/50mL 50 ML IV SCH ×3 (11:07→20:00)
[2021-03-16] MEDS: fentaNYL Drip 2500mCg/250mlNS 250 ML IV SCH (14:30)
[2021-03-16] MEDS ORDERED: ERGOCALCIFEROL 50,000 UNIT(1.25MG) CAP PO SCH (15:00)
[2021-03-16] MEDS: NOREPINEPHRINE BITARTRATE 16 MG in SODIUM CHL 0.9% 234 ML IV SCH (15:57)
[2021-03-16] MEDS: LINEZOLID 600MG/300ML 300 ML IV SCH (18:00)
[2021-03-16] MEDS ORDERED: TPN*HIGH CONC* PER PHARMACY IV NR ×7 (20:00)
[2021-03-16] MEDS: ALBUTEROL SULF 2.5 MG/0.5ML(0.5%) NEB SOLN NEB PRN (22:27)
[2021-03-16] MEDS: BUDESONIDE (INHALATION) 0.5 MG/2 ML NEB NEB SCH (22:27)
[2021-03-17] VITALS (99 sets, daily range): BP systolic 78–119; BP diastolic 38–60
[2021-03-17] MEDS: PHENYLEPHRINE IV 250 ML IV SCH ×3 (00:25→17:15)
[2021-03-17 04:02] LABS: Hemoglobin 7.9 g/dL (13.5-17.5)
[2021-03-17 04:03] LABS: Hematocrit 24.1 % (41.0-53.0); Mean Corpuscular Hemoglobin 31.6 pg (28.0-32.0); Mean Corpuscular Hgb Conc. 32.8 g/dL (32.0-36.0); Mean Corpuscular Volume 96.3 fL (80.0-100.0); Red Cell Distribution Width 14.7 % (11.8-14.3)
[2021-03-17 04:13] LABS: Basophils % (manual) 0 (0.0-2.0); Blast Cells 0; Eosinophils % (manual) 0 (0-7); Metamyelocytes % 0; Promyelocytes % 0; Reactive Lymphocytes 0
[2021-03-17 04:17] LABS: % Iron Saturation 93.6 % (20-55)
[2021-03-17 04:54] LABS: Potassium 4.5 mmol/L (3.5-5.1)
[2021-03-17 05:00] LABS: Albumin 2.6 g/dL (3.4-5.0); BUN/Creatinine Ratio 21.3; Bilirubin, Total 0.9 mg/dL (0.2-1.0); Calcium 8.1 mg/dL (8.5-10.1); Magnesium 2.5 mg/dL (1.6-2.6); Phosphorus 7.1 mg/dL (2.5-4.90); Total Protein 5.5 g/dL (6.4-8.2)
[2021-03-17] MEDS: InsuLIN REG 1unit/0.01ml Soln (100units/ml) SC SCH ×3 (06:00→18:00)
[2021-03-17] MEDS: ACCU-CHEK COMFORT CURVE STRIP VI SCH ×3 (06:11→18:00)
[2021-03-17] MEDS: LINEZOLID 600MG/300ML 300 ML IV SCH ×2 (06:11→18:49)
[2021-03-17 06:25] LABS: Band Neutrophils % (manual) 13; Lymphocytes % (manual) 3 (10.0-50.0); Myelocytes % 2
[2021-03-17 06:27] LABS: Monocytes % (manual) 4 (0-12)
[2021-03-17] MEDS ORDERED: SODIUM CHL 0.9% 1000 ML BAG XX ONE (07:00)
[2021-03-17] MEDS: MIDAZOLAM DRIP 50 mg/50mL 50 ML IV SCH ×4 (07:56→21:24)
[2021-03-17] MEDS: DexAMETHasone SOD PHOS 4 MG/1ML SDV INJ IV SCH ×2 (09:35→21:55)
[2021-03-17] MEDS: SODIUM CHLOR 0.9% PF (SALINE LOCK) 10ML VIAL/SYR IV SCH ×2 (09:35→21:55)
[2021-03-17] MEDS: FAMOTIDINE (10MG/ML) 2ML VL IV SCH (09:35)
[2021-03-17] MEDS: LACTULOSE 20Gm/30ML SOLN PO SCH ×2 (09:36→21:55)
[2021-03-17] MEDS: ZINC SULFATE 220mg CAP or TAB PO SCH (09:36)
[2021-03-17] MEDS: AMIODARONE HCL 200 MG TAB PO SCH ×2 (09:36→21:56)
[2021-03-17] MEDS: FLORASTOR (S. BOULARDII) 250 MG CAP PO SCH (09:37)
[2021-03-17] MEDS: CHOLECALCIFEROL (VITD3) 2,000 UNIT CAP/TAB PO SCH (09:37)
[2021-03-17] MEDS: FLUCONAZOLE 200MG/100ML 100 ML IV SCH (09:38)
[2021-03-17] MEDS: PROPOFOL 100 ML IV SCH ×4 (10:45→23:44)
[2021-03-17] MEDS: MEROPENEM 500MG IVPB 50 ML IV SCH ×2 (11:00→21:55)
[2021-03-17] MEDS: NOREPINEPHRINE BITARTRATE 16 MG in SODIUM CHL 0.9% 234 ML IV SCH ×2 (11:30→23:43)
[2021-03-17] MEDS: fentaNYL Drip 2500mCg/250mlNS 250 ML IV SCH (12:00)
[2021-03-17] MEDS ORDERED: TPN*HIGH CONC* PER PHARMACY IV NR ×7 (20:00)
[2021-03-17] MEDS ORDERED: EPOETIN ALFA-EPBX 10,000 UNIT/1ML VIAL SC ONE (21:00)
[2021-03-17] MEDS: BUDESONIDE (INHALATION) 0.5 MG/2 ML NEB NEB SCH (22:36)
[2021-03-17] MEDS: ALBUTEROL SULF 2.5 MG/0.5ML(0.5%) NEB SOLN NEB PRN (22:36)
[2021-03-18] VITALS (67 sets, daily range): BP systolic 85–112; BP diastolic 41–55
[2021-03-18] MEDS: ACCU-CHEK COMFORT CURVE STRIP VI SCH ×3 (00:12→12:00)
[2021-03-18] MEDS: fentaNYL Drip 2500mCg/250mlNS 250 ML IV SCH ×2 (02:00→13:00)
[2021-03-18] MEDS: PHENYLEPHRINE IV 250 ML IV SCH ×4 (03:03→15:30)
[2021-03-18] MEDS: PROPOFOL 100 ML IV SCH ×3 (03:06→11:00)
[2021-03-18] MEDS: MIDAZOLAM DRIP 50 mg/50mL 50 ML IV SCH ×2 (03:13→11:00)
[2021-03-18 05:09] LABS: Basophils % (auto) 0.3 % (0.0-2.0); Eosinophils # (auto) 0 10 ^3/uL (0-0.8); Eosinophils % (auto) 0.1 % (0.0-7.0); Hemoglobin 7.8 g/dL (13.5-17.5)
[2021-03-18 05:26] LABS: Basophils # (auto) 0 10 ^3/uL (0-0.2); Hematocrit 24.2 % (41.0-53.0); Lymphocytes # (auto) 0.8 10 ^3/uL (0.4-5.4); Lymphocytes % (auto) 4.3 % (10.0-50.0); Mean Corpuscular Hemoglobin 31.7 pg (28.0-32.0); Mean Corpuscular Hgb Conc. 32.1 g/dL (32.0-36.0); Mean Corpuscular Volume 98.6 fL (80.0-100.0); Monocytes # (auto) 0.7 10 ^3/uL (0-1.3); Monocytes % (auto) 3.8 % (0.0-12.0); Neutrophils # (auto) 17.8 10 ^3/uL (1.6-8.6); Neutrophils % (auto) 91.5 % (37.0-80.0); Nucleated Red Blood Cells % 2.1 %; Red Blood Cells 2.46 10^6/uL (4.5-5.90); Red Cell Distribution Width 15.7 % (11.8-14.3); White Blood Cell 19.5 10^3/uL (4.4-10.8)
[2021-03-18 05:31] LABS: Albumin 2.6 g/dL (3.4-5.0); Calcium 7.9 mg/dL (8.5-10.1); Magnesium 2.8 mg/dL (1.6-2.6); Potassium 4.2 mmol/L (3.5-5.1)
[2021-03-18 05:35] LABS: BUN/Creatinine Ratio 21.5; Phosphorus 6.2 mg/dL (2.5-4.90); Total Protein 5.5 g/dL (6.4-8.2)
[2021-03-18] MEDS: InsuLIN REG 1unit/0.01ml Soln (100units/ml) SC SCH ×3 (06:13→12:00)
[2021-03-18] MEDS: LINEZOLID 600MG/300ML 300 ML IV SCH (06:16)
[2021-03-18] MEDS: BUDESONIDE (INHALATION) 0.5 MG/2 ML NEB NEB SCH (06:37)
[2021-03-18] MEDS: ALBUTEROL SULF 2.5 MG/0.5ML(0.5%) NEB SOLN NEB PRN (06:37)
[2021-03-18] MEDS: NOREPINEPHRINE BITARTRATE 16 MG in SODIUM CHL 0.9% 234 ML IV SCH (07:33)
[2021-03-18] MEDS: MEROPENEM 500MG IVPB 50 ML IV SCH (10:01)
[2021-03-18] MEDS: SODIUM CHLOR 0.9% PF (SALINE LOCK) 10ML VIAL/SYR IV SCH (10:01)
[2021-03-18] MEDS: FLORASTOR (S. BOULARDII) 250 MG CAP PO SCH (10:04)
[2021-03-18] MEDS: AMIODARONE HCL 200 MG TAB PO SCH (10:04)
[2021-03-18] MEDS: CHOLECALCIFEROL (VITD3) 2,000 UNIT CAP/TAB PO SCH (10:04)
[2021-03-18] MEDS: LACTULOSE 20Gm/30ML SOLN PO SCH (10:04)
[2021-03-18] MEDS: DexAMETHasone SOD PHOS 4 MG/1ML SDV INJ IV SCH (10:05)
[2021-03-18] MEDS: ZINC SULFATE 220mg CAP or TAB PO SCH (10:05)
[2021-03-18] MEDS: FLUCONAZOLE 200MG/100ML 100 ML IV SCH (11:00)
[2021-03-18] MEDS ORDERED: MORPHINE SULFATE INJECTION 2 MG/ML SYRG IV PRN (16:00)
[2021-03-18] MEDS ORDERED: LORazepam 2MG/ML-1ML VIAL IV PRN (16:00)
[2021-03-18] MEDS ORDERED: TPN*HIGH CONC* PER PHARMACY IV NR ×6 (20:00)
== END 2021-03-19 00:55 | DRG 720 ==
LOC: ER 16:50 → TELE 02-19 00:01 → TELE-EAST 02-19 02:03 → TELE-E-ADS 02-24 04:36 → ICU WEST 02-27 12:47
PROVIDERS: ADMIT Nurse Practitioner Family; ATTEND Internal Medicine
PROC: XW033E5 Introduction of Remdesivir Anti-infective into Peripheral Vein, Percutaneous Approach, New Technology Group 5 (ICD-10-PCS; 2021-02-19)
PROC: 5A0935A Assistance with Respiratory Ventilation, Less than 24 Consecutive Hours, High Flow/Velocity Cannula (ICD-10-PCS; 2021-02-24)
PROC: 5A09457 Assistance with Respiratory Ventilation, 24-96 Consecutive Hours, Continuous Positive Airway Pressure (ICD-10-PCS; 2021-02-24)
PROC: 5A1955Z Respiratory Ventilation, Greater than 96 Consecutive Hours (ICD-10-PCS; principal; 2021-02-27)
PROC: 0BH17EZ Insertion of Endotracheal Airway into Trachea, Via Natural or Artificial Opening (ICD-10-PCS; 2021-02-27)
PROC: 06HM33Z Insertion of Infusion Device into Right Femoral Vein, Percutaneous Approach (ICD-10-PCS; 2021-02-27)
PROC: 02HV33Z Insertion of Infusion Device into Superior Vena Cava, Percutaneous Approach (ICD-10-PCS; 2021-03-04)
PROC: 5A1D70Z Performance of Urinary Filtration, Intermittent, Less than 6 Hours Per Day (ICD-10-PCS; 2021-03-04)
PROC: 5A1D70Z Performance of Urinary Filtration, Intermittent, Less than 6 Hours Per Day (ICD-10-PCS; 2021-03-06)
PROC: 02HV33Z Insertion of Infusion Device into Superior Vena Cava, Percutaneous Approach (ICD-10-PCS; 2021-03-09)
PROC: 5A1D70Z Performance of Urinary Filtration, Intermittent, Less than 6 Hours Per Day (ICD-10-PCS; 2021-03-09)
PROC: B548ZZA Ultrasonography of Superior Vena Cava, Guidance (ICD-10-PCS; 2021-03-09)
PROC: 5A1D70Z Performance of Urinary Filtration, Intermittent, Less than 6 Hours Per Day (ICD-10-PCS; 2021-03-11)
PROC: 5A1D70Z Performance of Urinary Filtration, Intermittent, Less than 6 Hours Per Day (ICD-10-PCS; 2021-03-12)
PROC: 5A1D70Z Performance of Urinary Filtration, Intermittent, Less than 6 Hours Per Day (ICD-10-PCS; 2021-03-15)
PROC: 5A1D70Z Performance of Urinary Filtration, Intermittent, Less than 6 Hours Per Day (ICD-10-PCS; 2021-03-17)
DX: A41.89 Other specified sepsis (principal); N17.0 Acute kidney failure with tubular necrosis; J12.82 Pneumonia due to coronavirus disease 2019; R65.21 Severe sepsis with septic shock; J15.211 Pneumonia due to Methicillin susceptible Staphylococcus aureus; J96.01 Acute respiratory failure with hypoxia; J96.02 Acute respiratory failure with hypercapnia; U07.1 COVID-19; D69.6 Thrombocytopenia, unspecified; J98.2 Interstitial emphysema; E87.0 Hyperosmolality and hypernatremia; E87.1 Hypo-osmolality and hyponatremia; E83.41 Hypermagnesemia; Z66 Do not resuscitate; E87.6 Hypokalemia; E86.1 Hypovolemia; E87.5 Hyperkalemia; R73.9 Hyperglycemia, unspecified; D89.839 Cytokine release syndrome, grade unspecified; E83.39 Other disorders of phosphorus metabolism; R00.1 Bradycardia, unspecified; E88.09 Other disorders of plasma-protein metabolism, not elsewhere classified; E66.01 Morbid (severe) obesity due to excess calories; Z83.3 Family history of diabetes mellitus; Z99.2 Dependence on renal dialysis; Z68.35 Body mass index [BMI] 35.0-35.9, adult; Z99.11 Dependence on respirator [ventilator] status; Z51.5 Encounter for palliative care
CPT/HCPCS: 36415; 36569; 36600; 71045; 71275; 76775; 80048; 80053; 82040; 82570; 82728; 82805; 82962; 83036; 83540; 83550; 83605; 83615; 83735; 84100; 84132; 84156; 84300; 84478; 85007; 85014; 85018; 85025; 85027; 85379; 85610; 85730; 86141; 87040; 87070; 87077; 87081; 87186; 87205; 87340; 87426; 90935; 93005; 93970; 94002; 94003; 94640; 94644; 94660; 96365; 96366; 96367; 96372; 96375; 99291; G0378; J0330; J0696; J1100; J1450; J1642; J1815; J1956; J2185; J2250; J2543; J2704; J3480; J3490; J7042; J7060; J7131; P9047